=== PATIENT | female | born 1980 | race Caucasian/White ===

== ENCOUNTER 2017-10-01 15:14 | Emergency (ER) | payer MEDICAID, SELFPAY ==
[2017-10-01 15:15] VITALS: BP 108/68; PULSE 91; RESP 16; TEMP 36.6; O2SAT 98; BMI 29.0
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
[2017-10-01] MEDS: Acetaminophen 500 MG Tablet 1000 MG PO (15:45)
[2017-10-01 16:33] LABS: Bacteria 0 SEEN /hpf (None Seen); Mucous, Urine 0 SEEN /hpf (<or=2+); Red Blood Cells-Urine 0 SEEN /hpf (0-5); White Blood Cells 0 SEEN /hpf (0-5)
[2017-10-01 16:46] LABS: Color, Urine Yellow (Yellow); Glucose, Dipstick Normal (Normal); Ketone-Dipstick 5 mg/dl (Negative); Leukocyte Esterase-Dipstick Negative /ul (Negative); Nitrite-Dipstick Negative (Negative); Occult Blood-Urine Negative /ul (Negative); Protein-Dipstick Negative (Negative); Specific Gravity, Urine 1.015 (1.002-1.030); Urine Bilirubin Dipstick Negative (Negative); Urine Clarity Clear (Clear); Urine Urobilinogen Normal (Normal); Urine pH 6.5 (5.0 - 8.0)
[2017-10-01 16:56] LABS: Squamous Epithelial Cells - UA 0-5 SEEN /hpf (5-10)
[2017-10-01 17:12] VITALS: BP 114/72; PULSE 79; RESP 16; O2SAT 100
== END 2017-10-01 17:13 | disposition home or self-care (01) ==
LOC: ED 17:03
PROVIDERS: Emergency Provider Emergency Medicine; PCP Family Medicine
DX: O9A.211 Injury, poisoning and certain other consequences of external causes complicating pregnancy, first trimester (principal); R10.9 Unspecified abdominal pain; Z3A.08 8 weeks gestation of pregnancy; V43.52XA Car driver injured in collision with other type car in traffic accident, initial encounter; Y93.9 Activity, unspecified; Y92.410 Unspecified street and highway as the place of occurrence of the external cause; Y99.9 Unspecified external cause status
CPT/HCPCS: 81001; 99284

== ENCOUNTER 2018-02-09 15:54 | Emergency (ER) | payer MEDICAID, SELFPAY ==
[2018-02-09] VITALS (9 sets, daily range): BP systolic 101–126; BP diastolic 53–69; PULSE 94–127; RESP 15–24; TEMP 36.5–36.9; O2SAT 94–98; BMI 31.1
--- NOTE | 2018-02-09 17:06 | CT_ITS ---
STUDY: CTA CHEST REASON FOR EXAM: Female, 37 years old. Shortness of breath, patient is 6 months RADIATION DOSAGE (If Supplied By Facility): CTDIvol = ( 10.96 ) mGy, DLP = ( 436.99 ) mGycm TECHNIQUE: The examination was performed with the intravenous administration of 100 ml of Isovue 370 contrast material. Post-processing of the angiographic images was performed, with multiplanar reformation and 3D reconstruction. Individualized dose optimization techniques were used for this CT. COMPARISON: None. FINDINGS: There is limited enhancement of the main pulmonary artery and right and left pulmonary arteries. There is limited enhancement of the bilateral peripheral pulmonary arteries. There is no demonstrated pulmonary embolism. Normal thoracic aorta and visualized great vessels. There is no demonstrated aortic dissection. Normal heart and pericardium. Normal mediastinum. Normal hilar regions. Normal visualized trachea and bronchi. The lungs are well expanded. Subtle small airways inflammation noted in both lung bases Normal pleura. Normal chest wall structures. Normal osseous structures. Normal visualized upper abdomen. CT/CTA Chest W/WO Contrast IMPRESSION: No demonstrated PE, or thoracic aortic aneurysm. However, contrast bolus within the pulmonary arteries is not optimal Evidence of bilateral small airways inflammation both lung bases Electronically Signed: Clyde Solis MD at 18:39 EST , Service support ,
--- NOTE | 2018-02-09 17:06 | EKG12_ITS ---
Test Reason : Blood Pressure : / mmHG Vent. Rate : 091 BPM Atrial Rate : 091 BPM P-R Int : 130 ms QRS Dur : 090 ms QT Int : 344 ms P-R-T Axes : 064 065 065 degrees QTc Int : 423 ms Normal sinus rhythm Normal ECG Confirmed by GENESIS LOREDO, BRITANY ([id number]), assistant film editor SUSANA BLACKWELL ([id number]) on 02/11/2018 2:33:31 PM Referred By: Confirmed By:BRITANY HURTADO MD
--- NOTE | 2018-02-09 17:13 | ED.DCSUM_ITS ---
- ER Visit Summary Date of Service: 02/09/18 Chief Complaint: Shortness of breath, cough History of Present Illness: The patient is a 37 F presenting with shortness of breath, cough. She states that this started 2-3 weeks ago. She has a productive cough. She states last week she had a fever but no fever today. She was seen by her NURSE REVIEWER who advised her to come to the ED for further evaluation. She is currently 6 months . She denies abdominal pain or vaginal bleeding. She is . She has occasional chest pain with coughing and with deep inspiration. Physical Examination: Vitals are stable. Patient is afebrile. Alert no acute distress. Pulse ox 96% on room air HEENT exam is unremarkable. Neck is supple. Lungs are mild expiratory wheezing bilaterally. Heart is regular and tachycardic Abdomen is soft nontender nondistended. Gravid Extremities are unremarkable. Skin is warm and dry. No focal neurologic deficit. Remainder of exam is unremarkable. Emergency Department Course and Treatment: EKG is sinus rhythm rate of 91 with no acute ischemic changes. CTA chest shows no demonstrated PE, or thoracic aortic aneurysm. However, contrast bolus within the pulmonary arteries is not optimal. Evidence of bilateral small airways inflammation both lung bases. CBC, chemistries unremarkable other than glucose 73. Patient is tolerating diet in the emergency department. Troponin is negative. Influenza negative. heart tones 160. She is given albuterol Atrovent aerosols with improvement. Her pulse ox is 96% on room air. Discussed with Tonya Calero. She is given albuterol MDI, Tessalon Perles, Zithromax. She is advised to follow-up with her NURSE REVIEWER and her primary care physician. Advised return to ED if worsening complaints. Disposition: Discharge home Impression: Bronchitis This note was generated with [facility] dictation software. It may contain incorrect words, spelling, and punctuation that were not noted in review of the chart prior to signing ED Disposition - Plan for ED Patient: Chief Complaint: Shortness of Breath Instructions: Acute Bronchitis Prescriptions: Azithromycin [Zithromax Z-Randal] 250 mg PO UD #1 box Benzonatate [Tessalon Perle] 200 mg PO TID PRN PRN #20 capsule PRN Reason: Cough Referrals: Jossy Koch MD [STAFF PHYSICIAN] - Red Sauceda MD [Primary Care Provider] -
[2018-02-09] MEDS: Ipratropium/Albuterol Sulfate 3 ML AMPUL.NEB INHALATION (17:36)
[2018-02-09] MEDS: Albuterol 2.5 MG/3 ML VIAL.NEB. INHALATION ×2 (17:36)
[2018-02-09 18:02] LABS: Anion Gap 9 (5-15); BUN 7 mg/dL (7-18); BUN/Creat Ratio 12.4 RATIO (10-20); Calcium,Total 8.5 mg/dL (8.5-10.1); Chloride 106 mmol/L (98-107); Creatinine, Serum 0.57 mg/dL (0.55-1.02); EST Glomerular Filtration Rate 129 mL/min (>60); Est Glom Filt Rate - Afr Amer 156 mL/min (>60); Estimated Creatinine Clearance 138.96 ml/min; Glucose 73 mg/dL (74-106); Potassium 3.8 mmol/L (3.5-5.1); Sodium Level 137 mmol/L (136-145)
[2018-02-09 18:55] LABS: Absolute Neutrophil Count 10.4 X10^3/uL (2.0-7.7); Basophil% 0.1 % (0-1); Eosinophils% 0.5 % (0-5); Hematocrit 32.9 % (37-47); Lymphocyte # 1.48 X10^3/ul (4.0); Lymphocyte % 11.6 % (19-41); Mean Corp Hgb Conc 33.4 g/gl (32-36); Mean Corpuscular Hgb 33.8 pg (27.0-32.0); Mean Corpuscular Volume 101.2 fL (81-99); Mean Platelet Vol. 9.4 fl (6.2-12.0); Monocyte% 6.2 % (0-10); Neutrophil # 10.42 X10^3/uL (2.7-7.7); Neutrophil % 81.4 % (47-70); POSITIVE COUNT NO; POSITIVE DIFFERENTIAL NO; POSITIVE MORPHOLOGY NO; Platelet Count 251 K/mm3 (150-450); RBC Distribution Width CV 13.2 % (11.6-14.6); RBC Distribution Width SD 46.7 fl (35.1-43.9); Red Blood Count 3.25 M/mm3 (4.2-5.4); White Blood Count 12.8 K/mm3 (4.4-11.0)
[2018-02-09 18:56] LABS: Absolute Lymphocyte Count 1.48 X10^3/ul (0.83-4.51); Basophil# 0.01 X10^3/uL; Eosinophil# 0.07 X10^3/uL
--- NOTE | 2018-02-09 19:14 | ED.DEP ---
ED Disposition - Plan for ED Patient: Chief Complaint: Shortness of Breath Instructions: Acute Bronchitis Prescriptions: Azithromycin [Zithromax Z-Randal] 250 mg PO UD #1 box Benzonatate [Tessalon Perle] 200 mg PO TID PRN PRN #20 capsule PRN Reason: Cough Referrals: Red Sauceda MD [Primary Care Provider] - Jossy Koch MD [STAFF PHYSICIAN] -
[2018-02-09] MEDS: Acetaminophen 500 MG Tablet 1000 MG PO (19:47)
--- NOTE | 2018-02-09 19:52 | ED.RN ---
Called lab at 1944 to ask about flu results. product technology scientist stated she was in the process of running swabs and it would be another 15min.
== END 2018-02-09 20:40 | disposition home or self-care (01) ==
LOC: ED 17:11
PROVIDERS: Emergency Provider Emergency Medicine; Family Provider Family Medicine; PCP Family Medicine
DX: J40 Bronchitis, not specified as acute or chronic (principal); Z72.0 Tobacco use
CPT/HCPCS: 71275; 80048; 84484; 85025; 87804; 93005; 94640; 99284; Q9967; A4216

== ENCOUNTER 2018-05-09 19:33 | Inpatient (IN) | payer MEDICAID, SELFPAY ==
[2018-02-09 15:55] VITALS: BMI 31.1
[2018-05-09 19:38] VITALS: BMI 34.2
[2018-05-09] MEDS: Lactated Ringers 1,000 ML 50 ML IV ×2 (19:42→20:58)
[2018-05-09 20:23] LABS: Absolute Neutrophil Count 9.8 X10^3/uL (2.0-7.7); Basophil# 0.01 X10^3/uL; Basophil% 0.1 % (0-1); Eosinophil# 0.13 X10^3/uL; Hemoglobin 11.7 g/dl (12.0-15.0); Lymphocyte % 15.6 % (19-41); Mean Corp Hgb Conc 33.4 g/gl (32-36); Mean Corpuscular Hgb 32.8 pg (27.0-32.0); Mean Platelet Vol. 10.1 fl (6.2-12.0); Monocyte# 0.79 X10^3/uL; Monocyte% 6.2 % (0-10); Neutrophil # 9.84 X10^3/uL (2.7-7.7); Neutrophil % 76.9 % (47-70); POSITIVE COUNT NO; POSITIVE DIFFERENTIAL NO; POSITIVE MORPHOLOGY NO; Platelet Count 237 K/mm3 (150-450); RBC Distribution Width CV 13.8 % (11.6-14.6); RBC Distribution Width SD 49.5 fl (35.1-43.9); Red Blood Count 3.57 M/mm3 (4.2-5.4); White Blood Count 12.8 K/mm3 (4.4-11.0)
--- NOTE | 2018-05-09 21:10 | PCM.HP.OB ---
- Problem List (1) PROM (premature rupture of membranes) Status: Acute Qualifiers: PROM onset of labor timing: onset of labor within 24 hours of rupture PROM gestational age: full term Qualified Code(s): O42.02 - Full-term premature rupture of membranes, onset of labor within 24 hours of rupture (2) Active labor at term Status: Acute (3) Tobacco use affecting in third trimester, antepartum Status: Chronic History Date of Admission: 05/09/18 Final MONIQUE: 05/10/18 Final MONIQUE Source: US <20 weeks Gestational age: 39 Weeks and 6 Days History of this : This is a 37 year-old, G [], P [], at 39 weeks gestational age. Allergies oxycodone HCl [From Percocet] Allergy (Verified 02/09/18 15:57) Angioedema acetaminophen [From Vicodin] Adverse Reaction (Verified 05/09/18 20:08) Vomiting hydrocodone [From Vicodin] Adverse Reaction (Verified 05/09/18 20:08) Vomiting Home Medications: Home Medications Vits [Prenatabs FA] 1 tablet PO DAILY 10/01/17 Ferrous Sulfate 325 mg PO 05/09/18 Smoking Status: Current every day smoker - smokes 1ppd Alcohol: None Number of Fetus(es): 1 Heart Tracing: Baseline 150, minimal variability, few accels, no decels TOCO Analysis: Ctx q 2-4 minutes, palpate moderately strong History Past Pregnancies: Past Pregnancies Delivery Date Name GA/Weeks Outcome Route Weight Gender Labor Length Anesthesia Delivery Location Provider FOB 12/2005 39+2wks Live 7#15oz M 8 hours Epidural 05/2009 38 wks Live 7#8oz M 8 hours Epidural 01/2011 Term Live 6#15oz F Epidural [facility] Labs: A+, Abs Neg, Rubella Immune, HIV NR, Syphilis NR, HepBsAg Neg, CBC WNL, [id number] Neg screen result, Urine tox negative, Urine Culture Negative, GC/CT = Neg/Neg, 1 hour GCT = 135, 3 hour GTT all values in normal range, GBS Neg Pap = LGSIL/+HPV Expected Delivery Method: Spontaneous Vaginal Describe any other labor & delivery plans:: Patient desires epidural Number of Visits: 11 Review of Systems Constitutional: Denies: Chills, Fever, Weight Change HEENT: Denies: Head Aches, Sinus Congestion, Sinus Drainage Cardiovascular: Denies: Chest Pain, Palpitations Respiratory: Denies: Cough, Shortness of breath at rest, Sputum production Gastrointestinal: Denies: Abdominal Pain, Nausea, Vomiting Genitourinary: Denies: Dysuria Gynecological: Reports: Vaginal discharge - +clear watery discharge c/w amniotic fluid. Denies: Vaginal bleeding Musculoskeletal: Denies: Joint Pain, Joint Tenderness Skin: Denies: Rash, Wounds Neurological: Denies: Numbness, Tingling, Focal weakness Psychiatric: Denies: Anxiety, Depression, Homicidal Ideations, Suicidal Ideations Hematologic/ Lymphatic: Denies: Easy Bruising, Easy Bleeding Physical Exam Vitals: VSS, Afebrile - see nursing note General: Alert, Oriented x3, No apparent distress HEENT: Atraumatic, Normocephalic. Negative for: Thyromegaly, Lymphadenopathy Cardiovascular: Regular rate, Regular Rhythm Lungs: Normal air movement Abdomen: Soft, Non Tender, Gravid, Appropriate for Gestational Age Extremities:: No edema Neurological: Deep Tendon Reflexes 2+/4 and Symmetrical, Neuro grossly intact TAG MAKER: Normal external genitalia. Negative for: Vulvar lesions Estimated gestational size: Appropriate for gestational size - EFW = 7.5# Presentation: Cephalic Cervix Dilation (cm): 3 - LArge gush clear fluid per nursing staff during exam Station: -2 Effacement (%): 70 Assessment/Plan All Active Problems PROM (premature rupture of membranes) (Acute) Active labor at term (Acute) Adverse reaction to caffeine (Acute) This is a 37 year-old, G [4], P [3], at 39 weeks gestational age, +SROM, Active Labor, Category I-II FHT P: 1) Admit patient for labor - start IV fluid bolus and draw admission labs as patient requests epidural for labor 2) Dr. Potts OB back-up notified of admission 3) Anticipate Apolonia Rawls FIELD HAULER-CNM
[2018-05-09] MEDS: fentaNYL-bupivacaine (epidural) 100 ML BAG EPIDURAL (21:25)
--- NOTE | 2018-05-09 21:30 | HP.PCM_ITS ---
- Problem List (1) PROM (premature rupture of membranes) Status: Acute Qualifiers: PROM onset of labor timing: onset of labor within 24 hours of rupture PROM gestational age: full term Qualified Code(s): O42.02 - Full-term premature rupture of membranes, onset of labor within 24 hours of rupture (2) Active labor at term Status: Acute (3) Tobacco use affecting in third trimester, antepartum Status: Chronic History Date of Admission: 05/09/18 Final MONIQUE: 05/10/18 Final MONIQUE Source: US <20 weeks Gestational age: 39 Weeks and 6 Days History of this : This is a 37 year-old, G [], P [], at 39 weeks gestational age. Allergies oxycodone HCl [From Percocet] Allergy (Verified 02/09/18 15:57) Angioedema acetaminophen [From Vicodin] Adverse Reaction (Verified 05/09/18 20:08) Vomiting hydrocodone [From Vicodin] Adverse Reaction (Verified 05/09/18 20:08) Vomiting Home Medications: Home Medications Vits [Prenatabs FA] 1 tablet PO DAILY 10/01/17 Ferrous Sulfate 325 mg PO 05/09/18 Smoking Status: Current every day smoker - smokes 1ppd Alcohol: None Number of Fetus(es): 1 Heart Tracing: Baseline 150, minimal variability, few accels, no decels TOCO Analysis: Ctx q 2-4 minutes, palpate moderately strong History Past Pregnancies: Past Pregnancies Delivery Date Name GA/Weeks Outcome Route Weight Gender Labor Length Anesthesia Delivery Location Provider FOB 12/2005 39+2wks Live 7#15oz M 8 hours Epidural 05/2009 38 wks Live 7#8oz M 8 hours Epidural 01/2011 Term Live 6#15oz F Epidural [facility] Labs: A+, Abs Neg, Rubella Immune, HIV NR, Syphilis NR, HepBsAg Neg, CBC WNL, [id number] Neg screen result, Urine tox negative, Urine Culture Negative, GC/CT = Neg/Neg, 1 hour GCT = 135, 3 hour GTT all values in normal range, GBS Neg Pap = LGSIL/+HPV Expected Delivery Method: Spontaneous Vaginal Describe any other labor & delivery plans:: Patient desires epidural Number of Visits: 11 Review of Systems Constitutional: Denies: Chills, Fever, Weight Change HEENT: Denies: Head Aches, Sinus Congestion, Sinus Drainage Cardiovascular: Denies: Chest Pain, Palpitations Respiratory: Denies: Cough, Shortness of breath at rest, Sputum production Gastrointestinal: Denies: Abdominal Pain, Nausea, Vomiting Genitourinary: Denies: Dysuria Gynecological: Reports: Vaginal discharge - +clear watery discharge c/w amniotic fluid. Denies: Vaginal bleeding Musculoskeletal: Denies: Joint Pain, Joint Tenderness Skin: Denies: Rash, Wounds Neurological: Denies: Numbness, Tingling, Focal weakness Psychiatric: Denies: Anxiety, Depression, Homicidal Ideations, Suicidal Ideations Hematologic/ Lymphatic: Denies: Easy Bruising, Easy Bleeding Physical Exam Vitals: VSS, Afebrile - see nursing note General: Alert, Oriented x3, No apparent distress HEENT: Atraumatic, Normocephalic. Negative for: Thyromegaly, Lymphadenopathy Cardiovascular: Regular rate, Regular Rhythm Lungs: Normal air movement Abdomen: Soft, Non Tender, Gravid, Appropriate for Gestational Age Extremities:: No edema Neurological: Deep Tendon Reflexes 2+/4 and Symmetrical, Neuro grossly intact SCHOOL JANITOR: Normal external genitalia. Negative for: Vulvar lesions Estimated gestational size: Appropriate for gestational size - EFW = 7.5# Presentation: Cephalic Cervix Dilation (cm): 3 - LArge gush clear fluid per nursing staff during exam Station: -2 Effacement (%): 70 Assessment/Plan All Active Problems PROM (premature rupture of membranes) (Acute) Active labor at term (Acute) Adverse reaction to caffeine (Acute) This is a 37 year-old, G [4], P [3], at 39 weeks gestational age, +SROM, Active Labor, Category I-II FHT P: 1) Admit patient for labor - start IV fluid bolus and draw admission labs as patient requests epidural for labor 2) Dr. Potts OB back-up notified of admission 3) Anticipate Apolonia Rawls POCKET SETTER LOCKSTITCH-CNM
[2018-05-09] MEDS: Ondansetron 4 MG/2 ML Vial IV (21:39)
[2018-05-09] MEDS: 0.9% Saline Lock 10 ML Syringe IV (21:41)
--- NOTE | 2018-05-09 22:08 | PCM.PN.BLA ---
Progress Note Addendum: S-Patient has received epidural, getting minimal relief at this time. Consideration for epidural replacement being considered by anesthesia provider. Decision made to check patient's cervix to assess for dilation. O- Baseline FHT 150, minimal to moderate variability. No accels, no decels. Patient contraction q 2-4 minutes, moderately strong on palpation. SVE = 4/70/-2, posterior, moderately firm. Clear fluid noted on glove. A/P: 37 y/o @ 39+6wks, Active Labor 1) Anesthesia will replace epidural at this time. 2) Continue present management Apolonia DÍAZ
--- NOTE | 2018-05-09 22:13 | PN_ITS ---
Progress Note Addendum: S-Patient has received epidural, getting minimal relief at this time. Consideration for epidural replacement being considered by anesthesia provider. Decision made to check patient's cervix to assess for dilation. O- Baseline FHT 150, minimal to moderate variability. No accels, no decels. Patient contraction q 2-4 minutes, moderately strong on palpation. SVE = 4/70/- 2, posterior, moderately firm. Clear fluid noted on glove. A/P: 37 y/o @ 39+6wks, Active Labor 1) Anesthesia will replace epidural at this time. 2) Continue present management Apolonia DÍAZ
[2018-05-10] MEDS: Lactated Ringers 1,000 ML 50 ML IV (02:11)
[2018-05-10] MEDS: Acetaminophen 325 MG Tablet PO (02:24)
--- NOTE | 2018-05-10 03:05 | PCM.PN.OB ---
Patient Problems: Active and Suspected Problems PROM (premature rupture of membranes) (Acute) Active labor at term (Acute) Subjective: Patient is now more comfortable with replaced epidural - resting well during contractions. Patient denies any pelvic pain or rectal pressure at this time. Nursing recently called with update of patient's status - internal monitors (IUPC and FSE) placed over concerns of continued decrease in variability of heart rate. Nursing staff recently rechecked patient - . Objective: FHT baseline 155, minimal variability, early decels and occasional mild variables with contractions Ctx q 2-3 minutes, palpate mild to strong SVE = as reported by RN, - Physical Exam General: Alert, Oriented x3, Cooperative Lungs: Normal air movement Cardiovascular: Regular rate, Regular Rhythm Abdomen: Soft, Non Tender, Gravid Extremities: No edema, No Calf Tenderness Weight: 212 lb 4 oz Body Mass Index (BMI) 34.2 Laboratory Tests Past 24 Hrs 05/09/18 05/09/18 19:42 19:42 WBC 12.8 H RBC 3.57 L Hgb 11.7 L Hct 35.0 L MCV 98.0 MCH 32.8 H MCHC 33.4 RDW 13.8 RDW Differential 49.5 H Plt Count 237 MPV 10.1 Immature Gran % (Auto) 0.200 Neut % (Auto) 76.9 H Lymph % (Auto) 15.[address] [place] % (Auto) 6.2 Eos % (Auto) 1.0 Baso % (Auto) 0.1 Absolute Neuts (auto) 9.8 H Absolute Lymphs (auto) 2.00 Total Counted Not Reportable Blood Type A POSITIVE Antibody Screen NEGATIVE Medical Necessity - Tobacco Use Smoking Status: Current every day smoker - smokes 1ppd Assessment/Plan All Active Problems PROM (premature rupture of membranes) (Acute) Active labor at term (Acute) Adverse reaction to caffeine (Acute) 37 y/o @ 40 weeks, Transition Stage of Labor, Category II FHT P: 1) Encourage position changes, PO hydration 2) Anticipate 3) Dr. Potts updated on patient status and category II FHT Apolonia Rawls APRN-IMELDA
--- NOTE | 2018-05-10 04:11 | PLAC_PTH ---
PATIENT: CAMMY GUNN LOC: WP U#:[id number] AGE/SX: 37/F ROOM: WP009 RE05/09/[address]: Dr. Megan Laura, MDDOB: 1980 BED: 1 DIS: 05/12/2018 SPEC #: [id number] RECD: 05/10/18 09:30 STATUS: HUBERT HAMIDA #: [id number] NISHI: 05/10/18 04:[address]: Megan Laura DEPT: SURGICAL PATHOLOGY RECD BY: Rogelio Robertson ENTERED: 05/10/18 10:47 SP TYPE: PLACENTA OTHR DR: Dr. Red Sauceda MD Tissues: Placenta, NOS Procedures: Surgery Specimen Level V HEADER OPERATION: Vaginal delivery PRE-OP DIAGNOSIS: Rule out placental infection TISSUE SUBMITTED: Placenta MICROSCOPIC DIAGNOSIS Placenta, vaginal delivery: [place] term placenta, 519 gm (10-99th percentile). Acute chorioamnionitis with focal acute vasculitis involving subamniotic blood vessels. Acute funisitis involving maternal and ends of umbilical cord. Villous maturation consistent with gestational age. Mild intervillous fibrin deposition with calcification. CE:jade 05/12/18 MICROSCOPIC DESCRIPTION Slides are reviewed. GROSS DESCRIPTION SPECIMEN: PLACENTA / CLINICAL INFORMATION: A. Weight: 3.844 kg B. Gestational Age: 40 weeks C. Sex: Female PLACENTAL WEIGHT (POST FIXATION): 519 gm PLACENTAL DIMENSIONS: 18 x 17 x 3 cm PLACENTAL SHAPE: Usual ovoid PLACENTAL WEIGHT FOR GESTATIONAL AGE: Within 10-99th percentile MEMBRANES - Present A. Insertion: Marginal B. Site of rupture from edge: At edge of placental disc C. Color of membrane: Saucedo-brunson D. Abnormalities: None UMBILICAL CORD - Present A. Color: Saucedo-brunson B. Insertion: Central C. Length: 25 cm D. Diameter: 1 cm E. Number of vessels: Three F. Abnormalities: None PLACENTAL DISC - Present A. Color of surface: Saucedo-brunson B. surface abnormalities: None C. Maternal cotyledons: Intact with minimal tears D. Attached retro placental clot: No clot E. Cut surface: Dark red and spongy F. Lesions: None G. Separate clot: Absent SECTIONS SUBMITTED: 1. Membrane roll 2. Cord, maternal end 3. Cord, end 4. Placental disc, and maternal surfaces 5. Placental disc, and maternal surfaces 6. Placental disc, and maternal surfaces SJ:jade 05/11/18 TC:2 CPT: 94266
[2018-05-10] MEDS: Oxytocin 30 units/NS 500 ml 30 UNITS/500 ML IV.SOLN 334 UNITS IV (04:16)
--- NOTE | 2018-05-10 04:39 | OP.PCM_ITS ---
- Problem List (1) PROM (premature rupture of membranes) Status: Resolved Qualifiers: PROM onset of labor timing: onset of labor within 24 hours of rupture PROM gestational age: full term Qualified Code(s): O42.02 - Full-term premature rupture of membranes, onset of labor within 24 hours of rupture (2) Active labor at term Status: Resolved (3) Tobacco use affecting in third trimester, antepartum Status: Resolved Vaginal Delivery Maternal Presentation: Active Labor Amniotic Membrane Rupture Type: Spontaneous at home Rupture of Membrane time: 05/09/18 @ 1800 Amniotic Fluid Description: Clear Final MONIQUE: 05/10/18 Final MONIUQE Source: US <20 weeks Gestational age: 40 Weeks and 0 Days [place] doctor who attended delivery (if requested by OB): Maryann Carrion Date of Procedure: 05/10/18 Pre-Operative Diagnosis: PROM at term, Active Labor Post-Operative Diagnosis: Spontaneous Delivery of Viable Girl Baby Surgery/ Procedure Performed: Spontaneous Vaginal Delivery Anesthesiologist: Neri Crum Type of Anesthesia: Epidural Description of Procedure: Category II tracing with minimal variability and baseline 160-170 noted. No maternal fever detected. Patient not warm to touch nor was vaginal vault hot. After epidural redosed patient started to feel increased rectal pressure and urge to push. Patient found to be C/C/+1 to +2 with ctx. Patient then spontaneously started bearing down and in one push delivered viable girl baby over intact perineum. Infant head delivered OA, restituted to RON then LOT. Anterior shoulders then easily delivered followed by body. Infant pink and vigorous with weak cry. Thick clear mucus secretions noted - mouth and nose of bulb suctioned and placed on maternal chest where baby was dried and stimulated. Strong vaginal odor and odorous secretions on baby noted at delivery. Continued weak cry noted after 1 minute, umbilical cord clamped and cut by provider so that infant could be handed off to awaiting pediatric team for evaluation and DeLee suctioning of secretions. Apgars 7,8 and 9. weight pending. Placenta then delivered spontaneously with maternal pushing effort and was intact with 3VC. Placenta hot to touch and also with strong odor. Placenta sent to pathology for evaluation. FF to massage, midline 2FB below umbilicus. IV pitocin given per protocol for active management of the 3rd stage. EBL = 250cc. Upon inspection of vaginal vault, no lacerations noted. No repair indicated. Sponge count correct. Vaginal sweep negative. [id number]-[id number] and bonding initiated. Patient does plan to breastfeed baby colostrum. consultation ordered. Presentation: Vertex, RON Placental Delivery Description: Spontaneous Placenta Disposition: Sent to Pathology Cord Vessel Description: 3 Vessels Cord Entanglement: None Estimated Blood Loss: 250 A gender: Female (1 minute): 7 (5 minute): 8 Episiotomy Description: None Laceration: None Medications given after delivery: IV Pitocin Complications: None
[2018-05-10] MEDS: Oxytocin 30 units/NS 500 ml 30 UNITS/500 ML IV.SOLN 167 UNITS IV (04:46)
[2018-05-10 08:00] VITALS: BP 119/67; PULSE 93; RESP 14; TEMP 36.2; O2SAT 96
[2018-05-10] MEDS: Ibuprofen 600 MG Tablet PO ×2 (10:13→16:21)
[2018-05-10 12:00] VITALS: BP 123/76; RESP 14; TEMP 36.1
[2018-05-10] MEDS: Acetaminophen 500 MG Tablet 1000 MG PO ×2 (12:03→20:24)
[2018-05-10 15:42] VITALS: BP 107/52; PULSE 90; RESP 16; TEMP 36.4
[2018-05-10 16:10] VITALS: BP 114/55; PULSE 78; RESP 18; TEMP 36.6
--- NOTE | 2018-05-10 16:10 | ED.RN ---
importance of frequency of feedings discussed with pt. pt encouraged to wake baby up to feed if she is still sleeping after going 3-4 hours without eating
--- NOTE | 2018-05-10 19:10 | NURSING ---
pt provided heating pad to help alleviate abd cramps
[2018-05-10 20:15] VITALS: BP 129/81; PULSE 80; RESP 18; TEMP 36
[2018-05-10] MEDS: Ondansetron ODT 4 MG Tablet PO (20:25)
[2018-05-11 00:05] VITALS: BP 101/53; PULSE 78; RESP 18; TEMP 36.6
[2018-05-11 04:15] VITALS: BP 136/70; PULSE 88; RESP 16; TEMP 36.6
[2018-05-11 07:19] VITALS: BP 112/67; PULSE 80; RESP 16; TEMP 36.1; O2SAT 98
[2018-05-11] MEDS: Ibuprofen 600 MG Tablet PO ×2 (07:25→15:17)
--- NOTE | 2018-05-11 08:50 | PCM.PN.OB ---
Subjective: Doing well per patient and nursing staff. Ambulating and taking PO without difficulty. Voiding and passing flatus. Breast and bottle feeding. Denies increased bleeding today, had large clots size of golf ball yesterday. Planning D/C home tomorrow. - Physical Exam General: Alert, Oriented x3, Cooperative HEENT: Atraumatic, Normocephalic Neck: Trachea Midline Lungs: Clear to auscultation, Normal air movement, No rhonchi, No wheeze Cardiovascular: Regular rate, Regular Rhythm, No murmurs Abdomen: Bowel Sounds Present, Soft, - - Fundus firm 2 below U Extremities: No edema, - - Blanca's negative Psych/Mental Status: Normal Affect, Appropriate Vital Signs Temp Pulse Resp BP Pulse Ox 97.0 F L 80 16 112/67 98 05/11/18 07:19 05/11/18 07:19 05/11/18 07:19 05/11/18 07:19 05/11/18 07:19 Oxygen Delivery Method Room Air Weight: 212 lb 4 oz Body Mass Index (BMI) 34.2 Intake and Output for Last 24 Hours 05/09/18 05/10/18 05/11/18 23:59 23:59 23:59 Intake Total 1865 / 1865 Output Total 200 / 200 Balance 1665 / 1665 Medical Necessity - Tobacco Use Smoking Status: Current every day smoker - smokes 1ppd Assessment/Plan All Active Problems PROM (premature rupture of membranes) (Resolved) Active labor at term (Resolved) Tobacco use affecting in third trimester, antepartum (Resolved) Adverse reaction to caffeine (Acute) A:PPD #1 Breast and bottle feeding P: 1) Routine care 2) Pain management 3) Planning D/C home tomorrow.
[2018-05-11] MEDS: Acetaminophen 500 MG Tablet 1000 MG PO (12:50)
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
[2018-05-11 14:00] VITALS: BP 117/84; PULSE 87; RESP 16; TEMP 36.7; O2SAT 99
[2018-05-11 15:18] LABS: Hematocrit 31.8 % (37-47); Hemoglobin 10.4 g/dl (12.0-15.0); Mean Corp Hgb Conc 32.7 g/gl (32-36); Mean Corpuscular Hgb 32.8 pg (27.0-32.0); Mean Corpuscular Volume 100.3 fL (81-99); Mean Platelet Vol. 10.4 fl (6.2-12.0); Platelet Count 212 K/mm3 (150-450); RBC Distribution Width CV 13.8 % (11.6-14.6); RBC Distribution Width SD 48.7 fl (35.1-43.9); Red Blood Count 3.17 M/mm3 (4.2-5.4)
[2018-05-11 15:19] LABS: Scan Indicated on CBC? Y/N NO
[2018-05-11 16:22] LABS: ALB/GLOB Ratio 0.7 RATIO (0.9-2.4); AST(SGOT) 57 U/L (15-37); Alanine Aminotransfer ALT/SGPT 51 U/L (13-56); Albumin, Serum 2.3 g/dL (3.2-5.0); Alkaline Phosphatase 124 U/L (45-117); Anion Gap 3 (5-15); BUN 8 mg/dL (7-18); Calcium,Total 7.8 mg/dL (8.5-10.1); Chloride 108 mmol/L (98-107); Creatinine, Serum 0.66 mg/dL (0.55-1.02); EST Glomerular Filtration Rate 107 mL/min (>60); Est Glom Filt Rate - Afr Amer 129 mL/min (>60); Estimated Creatinine Clearance 111.37 ml/min; Globulin 3.3 g/dL (2.2-4.2); Glucose 93 mg/dL (74-106); Potassium 4.6 mmol/L (3.5-5.1); Protein, Total 5.6 g/dL (6.4-8.2); Sodium Level 137 mmol/L (136-145)
[2018-05-11 18:20] LABS: Amphetamine Urine VISTA NEGATIVE (<1000 ng/mL); Barbiturate Urine VISTA NEGATIVE (< 200 ng/mL); Benzodiazepine Urine VISTA NEGATIVE (< 200 ng/mL); Cocaine Urine VISTA NEGATIVE (< 300 ng/mL); Ecstacy Urine VISTA NEGATIVE (< 500 ng/mL); Methadone Urine VISTA NEGATIVE (< 300 ng/mL); PCP Urine VISTA NEGATIVE (< 25 ng/mL); THC Urine VISTA NEGATIVE (< 50 ng/mL); Vista UDS pH Range 6
[2018-05-11 20:40] VITALS: BP 133/79; PULSE 91; RESP 18; TEMP 36.1
[2018-05-12 01:30] VITALS: BP 116/67; PULSE 76; RESP 18; TEMP 36.3
[2018-05-12] MEDS: Ibuprofen 600 MG Tablet PO (07:49)
[2018-05-12 08:00] VITALS: BP 135/86; PULSE 80; RESP 18; TEMP 36.6; O2SAT 96
--- NOTE | 2018-05-12 09:32 | NURSING ---
Pt declined fundal assessment at 08:00 Agreed to letting RN palpate after pain med takes effect. Pt hoding baby in lap, feeding with bottle. Burping reinstructed. Discharge instructions initiated.
--- NOTE | 2018-05-12 10:04 | DCINST_ITS ---
Discharge Diet: No Restrictions Discharge Activity: Return to Normal Activity, May not drive while taking narcotic pain medications., May Shower May resume sexual activity in: 4-6 weeks Additional Activity Instructions:: Nothing in the vagina for 4-6 weeks. You may return to work/school in 6 weeks. Call your doctor if your incision/area has: Continuous Slow Oozing, Sudden Increased Bleeding, Increased Pain/ Swelling, Increased Redness, Foul Smelling Discharge Call your doctor if you observe: Fever of 101 or Higher, Inability to urinate, Inability to have a bowel movement, Using more than one pad per hour Additional Instructions: If you experience any of the following, contact your healthcare provider. * Bleeding that soaks a pad every hour for 2 hours * Fever 100.4 or higher * Unrelieved incision or abdominal pain * Swelling, redness, discharge or bleeding from your incision or episiotomy site * Your incision begins to separate * Problems urinating (including inability to urinate or burning while urinating). * Visual changes * Severe headache * Flu-like symptoms * Pain or redness in one of both of your breasts * Pain, warmth, tenderness or swelling in your legs, especially the calf area * Frequent nausea and vomiting * Symptoms of depression or anxiety If you experience any of the following, call 911 or go to the nearest Emergency Room. * Chest pain * Problems breathing * Seizure activity * Partial or complete paralysis of a body part, slurred speech, weakness or drooping of the face, or a sudden inability to walk or hold your balance Allergies/Adverse Reactions: Allergies oxycodone HCl [From Percocet] Allergy (Verified 02/09/18 15:57) Angioedema acetaminophen [From Vicodin] Adverse Reaction (Verified 05/09/18 20:08) Vomiting hydrocodone [From Vicodin] Adverse Reaction (Verified 05/09/18 20:08) Vomiting Medications to take at Discharge Vits [Prenatabs FA] 1 tablet PO DAILY 10/01/17 Ferrous Sulfate 325 mg PO 05/09/18 Please Follow Up With: Apolonia Rawls CNM When: Call to make an appointment with your provider in 2 and 6 weeks. Primary Care Physician: Red Sauceda MD [Primary Care Provider] - Test Results: Test results from this visit will be discussed in further detail at your follow- up appointment, if applicable. Proposed Discharge Date: 05/12/18
--- NOTE | 2018-05-12 10:12 | PN.OBGYN_ITS ---
Subjective: Patient sitting up in bed bonding with infant at this time. Patient reports no issues currently, denies any issues with urination or ambulation. Denies GALVAN, scotoma or fever. Patient desires discharge to home today. Objective: VSS, Afebrile - see nurse's note Nipples without cracks or blisters, breasts soft Abdomen NT x 4 quadrants, FF midline 2FB below umbilicus +2/4 reflexes in LE, no edema scant rubra lochia negative calf tenderness to palpation BL in LE - Physical Exam General: Alert, Oriented x3, Cooperative HEENT: Atraumatic, Normocephalic Lungs: Normal air movement Cardiovascular: Regular rate, Regular Rhythm, No murmurs Abdomen: Soft, Non Tender Extremities: No edema, Capillary Refill Less than 3 Seconds Skin: No rashes, No breakdown Musculoskeletal: No Tenderness to Palpation of Joints or Extremities Neurological: Cranial nerves II-XII grossly intact, Deep Tendon Reflexes 2+/4 and Symmetrical Psych/Mental Status: Normal Affect, Appropriate Vital Signs Temp Pulse Resp BP Pulse Ox 97.9 F 80 18 135/86 H 96 05/12/18 08:00 05/12/18 08:00 05/12/18 08:00 05/12/18 08:00 05/12/18 08:00 Oxygen Delivery Method Room Air Weight: 212 lb 4 oz Body Mass Index (BMI) 34.2 Intake and Output for Last 24 Hours 05/10/18 05/11/18 05/12/18 23:59 23:59 23:59 Intake Total 1865 / 1865 Output Total 200 / 200 Balance 1665 / 1665 Laboratory Tests Past 24 Hrs 05/11/18 05/11/18 05/11/18 15:05 15:05 17:55 WBC 12.0 H RBC 3.17 L Hgb 10.4 L Hct 31.8 L MCV 100.3 H MCH 32.8 H MCHC 32.7 RDW 13.8 RDW Differential 48.7 H Plt Count 212 MPV 10.4 Sodium 137 Potassium 4.6 Chloride 108 H Carbon Dioxide 26.0 Anion Gap 3 L BUN 8 Creatinine 0.66 Estim Creat Clear Calc 111.37 Est GFR (MDRD) Af Amer 129 Est GFR (MDRD) Non-Af 107 BUN/Creatinine Ratio 12.0 Glucose 93 Calcium 7.8 L Total Bilirubin 0.30 AST 57 H ALT 51 Alkaline Phosphatase 124 H Total Protein 5.6 L Albumin 2.3 L Globulin 3.3 Albumin/Globulin Ratio 0.7 L Urine Opiates Screen NEGATIVE Urine Methadone Screen NEGATIVE Ur Barbiturates Screen NEGATIVE Ur Phencyclidine Scrn NEGATIVE Ur Amphetamines Screen NEGATIVE U Methamphetamin-MDMA NEGATIVE U Benzodiazepines Scrn NEGATIVE Urine Cocaine Screen NEGATIVE U Cannabinoids Screen NEGATIVE Ur Drug Screen Comment Medical Necessity - Tobacco Use Smoking Status: Current every day smoker - smokes 1ppd Assessment/Plan All Active Problems PROM (premature rupture of membranes) (Resolved) Active labor at term (Resolved) Tobacco use affecting in third trimester, antepartum (Resolved) Adverse reaction to caffeine (Acute) 37y/ now, s/p , PPD #2, Normal PP Course P: 1) Discharge to home pending discharge 2) Anticipatory health teaching reviewed 3) RTC at 2 and 6 weeks PP to [facility] Apolonia DÍAZ
[2018-05-12 14:34] LABS: Pathology Specimen OB SEE PATHOLOGY REPORT
--- NOTE | 2018-05-17 17:31 | NURSING ---
05/17/18 Follow up phone call made and left a message to call back if any further questions or concerns. Mauricio
== END 2018-05-12 10:20 | disposition home or self-care (01) | DRG 560 ==
LOC: WPOUT 19:37 → WP 19:37
PROVIDERS: Advanced Practice Midwife; Admitting Provider Obstetrics & Gynecology; Family Provider Family Medicine; PCP Family Medicine; Referring Provider Obstetrics & Gynecology; Visit Provider Obstetrics & Gynecology
DX: O42.02 Full-term premature rupture of membranes, onset of labor within 24 hours of rupture (principal); O99.334 Smoking (tobacco) complicating childbirth; Z3A.40 40 weeks gestation of pregnancy; Z37.0 Single live birth
CPT/HCPCS: 59025; 59050; 80053; 80307; 85025; 85027; 86850; 86900; 88307; 99218; J7120; A4216; G0378; J2405

== ENCOUNTER 2023-01-29 15:22 | Emergency (ER) | payer OTHER, BC, SELFPAY ==
[2023-01-29 15:22] VITALS: BP 172/86; PULSE 84; RESP 16; TEMP 36.4; O2SAT 98; BMI 28.1
--- NOTE | 2023-01-29 16:19 | EDS_ITS ---
HPI History of Present Illness Chief Complaint: Eye Problem Informant: patient Onset/Context/Timing Location: Left Eye Onset: Yesterday Narrative Narrative: Patient presents with left eye injury. She states that she was at work yesterday and splashed a chemical into her eye. She is not sure what it was. She irrigated her eye at the time and kept working. This morning she woke up with some crusting and discharge from her left eye. She had some mild eyelid edema. She called work and told them that she would not be in. She went to urgent care but was advised she had to come to the ER for eye irrigation. Denies vision change. Mild aching sensation to the left eye. No light sensitivity. PFSH PFSH Medical History no medical history no medical history Home Medications vits,calcium no.78-iron fumarate-folic acid 29 mg-1 mg tablet (Prenatabs FA) 1 tab PO DAILY 10/01/17 [History Last Taken 05/08/18 09:00] ibuprofen 600 mg tablet 600 mg PO Q6H PRN PRN Mild Pain (-04/17) 05/12/18 [Rx Last Taken Unknown] Allergy/AdvReac Type Severity Reaction Status Date / Time oxycodone HCl [From Percocet] Allergy Angioedema Verified 02/09/18 15:57 acetaminophen [From Vicodin] AdvReac Vomiting Verified 05/09/18 20:08 hydrocodone [From Vicodin] AdvReac Vomiting Verified 05/09/18 20:08 Social History Smoking Status: Current every day smoker tobacco type: cigarettes ROS ROS ED Constitutional Constitutional ED: Denies chills or fever(s) Eyes Eyes: Reports discharge from eye(s); Denies change in vision ENT ENT ED: Reports discharge from eye(s) left; Denies rhinorrhea or sore throat Cardiovascular Cardiovascular: Denies chest pain Respiratory/Chest Respiratory/Chest: Denies cough or dyspnea Gastrointestinal Gastrointestinal: Denies abdominal pain, nausea or vomiting Integumentary Denies Abrasions or rash Neurologic Neurologic: Denies headache(s) or weakness Psychiatric Psychiatric: Denies anxiety or depression Allergic/Immunologic Allergic/Immunologic ED: Denies lip swelling or urticaria EXAM Physical Exam Const Vital Signs: 01/29/23 15:22 Temperature 97.6 F L Temperature Source Temporal Pulse Rate 84 Respiratory Rate 16 Blood Pressure 172/86 H Blood Pressure Mean 114 Pulse Ox 98 Oxygen Delivery Method Room Air Positive well nourished and well developed General Appearance ED: well developed HEENT HEENT Narrative: Mild left upper eyelid edema. No significant erythema or sign of cellulitis. No significant conjunctival injection. Pupils equal and reactive. Extraocular movements fully intact. Resp normal respiratory effort Cardio regular rate and regular rhythm Extremity normal to inspection Neuro oriented x3 and moves all extremities Skin no wounds MDM MDM MDM Narrative Medical decision making narrative: Tetracaine applied to the left eye and eyewash to lightly irrigate the eye. Treatment and Re-Evaluation Narrative: After I was irrigated by nursing staff I presented to the bedside. Another drop of tetracaine is applied and fluorescein stain placed. No evidence of uptake, ulceration, abrasion. I did discuss with patient that she has evidence of a chemical conjunctivitis. I will treat her with gentamicin ophthalmic drops to help prevent any secondary bacterial infection. She will follow-up with [facility] care. Discharge Plan Triage Chief Complaint: Eye Problem ED Provider: Rachel Adan Dx/Rx/DC Orders Clinical Impression: Acute chemical conjunctivitis of left eye Instructions: ED Conjunctivitis, Nonspecific Prescriptions: No Action vit,[id number] [Prenatabs FA] 1 TABLET tablet 1 tab PO DAILY ibuprofen 600 MG tablet 600 mg PO Q6H PRN PRN (Reason: Mild Pain (1-310)) 0RF Stand Alone Forms: Work Status Form Primary Care Provider: Red Sauceda Referrals: [facility] [Group of Physicians] - 3-5 Days Red Sauceda MD [Primary Care Provider] - Activity Restrictions/Additional Instructions: Gentamicin ophthalmic drops: 2 drops to affected eye every 6 hours until symptoms resolved for 24 hours. Disposition Disposition: Home, Self Care
[2023-01-29] MEDS: Fluorescein 1 MG STRIP 1 STRIP LEFT EYE (16:33)
[2023-01-29] MEDS: Tetracaine 0.5% Ophthalmic Bottle 1 DRP LEFT EYE (16:34)
[2023-01-29] MEDS: Gentamicin Sulfate 1 OPTH.BTL 2 DRP LEFT EYE (17:05)
[2023-01-29] MEDS: Sodium/Calcium/Mag/Potassium 15 ML Bottle LEFT EYE (17:05)
== END 2023-01-29 17:12 | disposition home or self-care (01) ==
PROVIDERS: Emergency Provider Emergency Medicine; PCP Family Medicine; Visit Provider Emergency Medicine
DX: H10.32 Unspecified acute conjunctivitis, left eye (principal); F17.210 Nicotine dependence, cigarettes, uncomplicated; H57.12 Ocular pain, left eye
CPT/HCPCS: 99283

== ENCOUNTER 2023-04-23 03:30 | Emergency (ER) | payer OTHER, SELFPAY ==
[2023-04-23 03:32] VITALS: BP 136/78; PULSE 90; RESP 16; TEMP 36.7; O2SAT 98; BMI 29.1
--- OUTSIDE RECORDS SUMMARY | 2023-04-23 03:59 | XMS RPT_ITS | CCD ---
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 Name Role Phone Sopankaj, Telemate Unavailable Unavailable Estefani Telemate Unavailable Unavailable Red Gonzalez Unavailable Unavailable Red Gonzalez MD Primary Care Provider Allergies Allergy Classification Reported Allergen(s) Allergy Type Date of Onset Reaction(s) Facility (1 source) acetaminophen / oxyCODONE; Translations: [Percocet ] Drug Allergy [facility] Repository (1 source) Acetaminophen / oxyCODONE Drug Allergy 5 Swelling [facility] (1 source) HYDROcodone Drug Allergy 8 Other: See Comments [facility] (1 source) Bees Propensity to adverse reactions 8 [facility] Work Phone: Medications Completed/Discontinued Medications Medication Drug Class(es) Dates Sig (Normalized) Sig (Original) [id number] actuat albuterol 0.09 mg/actuat metered dose inhaler (1 source) beta2-Adrenergic Agonist Start: 01-09-2019 take 2 puff(s) by inhalation every three hours albuterol HFA (VENTOLIN HFA) 90 mcg/actuation inhaler Inhale 2 Puffs as instructed every 3 hours. 0 01/09/2019 Active Problems Active Problems Problem Classification Problem Date Documented Da te Episodic/Chronic Anxiety disorders (1 source) Mixed anxiety and depressive disorder; Translations: [Other specified anxiety disorders] Onset: 02-09-2012 01-13-2019 Chronic Mood disorders (1 source) Recurrent major depression in partial remission; Translations: [Major depressive disorder, recurrent, in partial remission] Onset: 01-10-2016 01-10-2016 Chronic Other screening for suspected conditions (not mental disorders or infectious disease) (1 source) Patient encounter status; Translations: [Encounter for screening mammogram for malignant neoplasm of breast] 08-12-2022 Episodic Thyroid disorders (1 source) Non-toxic multinodular goiter; Translations: [Nontoxic multinodular goiter] Onset: 09-30-2007 09-30-2007 Chronic Past or Other Problems Problem Classification Problem Date Documented Date Episodic/Chronic Cancer of cervix (1 source) High grade squamous intraepithelial lesion on cervical Papanicolaou smear; Translations: [High grade squamous intraepithelial lesion on cytologic smear of cervix (HGSIL)] Onset: 07-11-2018 08-15-2018 Episodic Spondylosis; intervertebral disc disorders; other back problems (1 source) Chronic low back pain; Translations: [Chronic midline low back pain without sciatica] Onset: 01-30-2016 01-30-2016 Episodic Results Test Name Value Interpretation Reference Range Facil ity Encounters Encounter Date Encounter Type Care Provider Facility Start: 08-12-2022 ambulatory Red Gonzalez MD Work Phone: Internal Medicine [facility] Start: 08-13-2017 End: 08-13-2017 Emergency department patient visit [facility] Facility:[facility] Plan of Treatment Date Care Activity Detail Author Start: 04-04-2028 Urine microalbumin profile DTAP,TDAP,TD (2 - Td or Tdap) [facility] Start: 2023 HPV TESTING HPV TESTING [facility] Start: 2023 PAP TESTING PAP TESTING [facility] Start: 10-09-2022 Influenza vaccination INFLUENZA (#1) [facility] Start: 2022 Mammography MAMMOGRAM [facility] Start: 1988 PNEUMOCOCCAL (1 - PCV) PNEUMOCOCCAL (1 - PCV) [facility] Start: 1982 COVID-19 VACCINE (#1) COVID-19 VACCINE (#1) [facility] Start: 1982 HEPATITIS B (1 of 3 - 3-dose series) HEPATITIS B (1 of 3 - 3-dose series) [facility] End: 09-11-2023 JACKIE SCREENING JACKIE SCREENING Radiology Routine Encounter for screening mammogram for breast cancer 1 Occurrences starting 08/12/2022 until 09/11/2023 [facility] Work Phone: Immunizations Immunization Date Immunization Notes Care Provider Fa anabelfadia 04-04-2018 tetanus toxoid, redu ricardo diphtheria toxoid, and acellular pertussis vaccine, adsorbed Red Gonzalez MD Work Phone: [facility] Work Phone: 12-15-2010 influenza virus vaccine, unspecified formulation Red Gonzalez MD Work Phone: [facility] Payers Date Payer Category Payer Medicaid [facility] [place] [facility] MEDICAID [id number] 2022-Present [phone] [address] [place] [address] Medicaid [id number] 2017 Unknown Social History Date Type Detail Facility Start: 09-15-2017 [facility] History of tobacco use Cigarette Smoker [facility] Start: 09-15-2017 Cigarettes smoked cu rrent (pack per day) - Reported 0.5 [facility] Start: 09-15-2017 Tobacco use and exposure Smoke less tobacco non-user [facility] Start: 01-10-2020 Alcohol intake Current drinke r of alcohol (finding) [facility] Start: 07-08-2010 Alcohol Comment Occasional,NOT WHILE [facility] Start: 1980 Sex Assigned At Not on file [facility] Gender identity Not on file [facility] inic Clinical Note 08-12-2022 Note Date & Type Note Facility 08-12-2022 Note Patient Outreach (IN [facility]) CAMMY GUNN ([id number]) 1980 F Date Time Provider Department 08/12/22 RED GONZALEZ During your visit today, we recorded the following information about you: Allergies As of Date: 08/12/2022 Noted Allergy Reaction BEES 09/30/2007 HYDROCODONE 06/25/2017 14 - Other: See Comments Comments: Dry heaving PERCOCET (OXYCODONE-ACETAMINOPHEN)02/04/2015 7 - Swelling Date Reviewed: 01/10/2020 Reviewed by: Amanda Stone (Handy) HANDY Berger - Fully Assessed Visit Diagnosis:Encounter for screening mammogram for breast cancer [Z12.31] Order(s):[facility] SCREENING [[id number]] Order #: [id number] FUTURE Prescriptions as of 08/17/2022 - venlafaxine ER (EFFEXOR XR) 75 mg 24 hr capsule TAKE 1 CAPSULE BY MOUTH EVERY DAY - albuterol HFA (VENTOLIN HFA) 90 mcg/actuation inhaler Inhale 2 Puffs as instructed every 3 hours. - varenicline (CHANTIX STARTING MONTH BOX) 0.5 mg (11)- 1 mg (42) tablet Take 1 tablet (0.5 mg) by mouth once daily for 3 days, then 1 tablet (0.5 mg) twice daily for 4 days, then one tablet (1 mg) twice daily. - nicotine (NICODERM) 21 mg/24 hr Apply 1 Patch as directed every 24 hours. - levonorgestrel (MIRENA) 20 mcg/24 hours (5 yrs) 52 mg IUD 1 Each by INTRAUTERINE route continuous. - oxybutynin (DITROPAN) 5 mg tablet Take 1 tablet by mouth three times daily. Problem List As Of Date 08/12/2022 Noted Resolved NONTOX MULTINODUL GOITER [E04.2] 09/30/2007 Supervision of other normal [Z34.80] 01/22/2011 03/18/2011 Recurrent major depression in partial remission*01/10/2016 Chronic midline low back pain without sciatica *01/30/2016 Low grade squamous intraepithelial lesion (LGSI*09/27/2017 07/11/2018 Supervision of other high risk pregnancies, fir*09/27/2017 06/28/2018 Elderly multigravida in first trimester [O09.52*09/27/2017 06/28/2018 HSIL (high grade squamous intraepithelial lesio*07/11/2018 Anxiety associated with depression [F41.8] 2012 Encounter Status:Closed by PAOLA DELACRUZUSER on 08/17/22 [facility] History of Past illness Narrative 09-27-2017 Note Date & Type Note Facility documented as of this encounter (statuses as of 08/17/2022) [facility] Evaluation note Note Date & Type Note Facility documented in this encounter [facility] Reason for referral (narrative) Diagnostic Procedure Only (Routine) - Pending Review Note Date & Type Note Facility Referral ID Status Reason Start Date Expiration Date Visits Requested Visits Authorized [id number] Pending Review Auto-Generat ed Referral 08/12/2022 09/11/2023 1 1 [facility] Summary Purpose Family History No Family History Records FoundNo Family History Records FoundNo Family History Records Found Advance Directives No Advanced Directives Records FoundNo Advanced Directives Records FoundNo Advanced Directives Records Found Additional Source Comments INFORMATION SOURCE (unrecogn ized section and content) DATE CREATED AUTHOR AUTHOR'S ORGANIZ ATION 03/12/2020 [facility] ([place]) DATE CREATED AUTHOR AUTHOR'S ORGANIZ ATION 08/17/2022 [facility] Source Comments (unrecognize d section and content) In the event this informatio n is protected by the Federal Confidentiality of Alcohol and Drug Abuse Patient Records regulations: The Federal rules restrict any use of the information to criminally investigate or prosecute any alcohol or drug abuse patient.[facility] Care Teams (unrecognized sec tion and content) FOR RECORDS PERTAINING TO PATIENTS WHO ARE OR HAVE BEEN ENROLLED IN A CHEMICAL DEPENDENCY/SUBSTANCEABUSE PROGRAM, SOME INFORMATION MAY BE OMITTED. This clinical summary was aggregated from multiple sources. Caution should be exercised in using it in the provision of clinical care. This summary normalizes information from multiple sources, and as a consequence, information in this document may materially change the coding, format and clinical context of patient data. In addition, data may be omitted in some cases. CLINICAL DECISIONS SHOULD BE BASED ON THE PRIMARY CLINICAL RECORDS. [facility] [employer] [facility]. provides no warranty or guarantee of the accuracy or completeness of information in this document.
[2023-04-23] MEDS: Fluorescein 1 MG STRIP 1 STRIP LEFT EYE (04:08)
[2023-04-23] MEDS: Tetracaine 0.5% Ophthalmic Bottle 1 DRP RIGHT EYE (04:08)
--- NOTE | 2023-04-23 04:32 | EDS_ITS ---
HPI History of Present Illness Chief Complaint: Eye Problem Informant: patient and other (Work staff) Narrative Narrative: Patient is a 42-year-old female with no significant past medical history. She was at work this evening when a cleaning solution of sodium hydrochloride accidentally splashed into her right eye. She states she does not wear contacts or glasses. She reports that as soon as the event happened she went to the eyewash station and began washing her eye. She states that she has redness and irritation but denies any change in vision. However based on the chemical exposure she was brought in for evaluation. PFSH PFS Medical History no medical history Home Medications vits,calcium no.78-iron fumarate-folic acid 29 mg-1 mg tablet (Prenatabs FA) 1 tab PO DAILY 10/01/17 [History Last Taken 05/08/18 09:00] ibuprofen 600 mg tablet 600 mg PO Q6H PRN PRN Mild Pain (1-3/10) 05/12/18 [Rx Last Taken Unknown] ciprofloxacin HCl 0.3 % eye drops 2 drp RIGHT EYE 4X/DAY 5 days #10 mL 04/23/23 [Rx Last Taken Unknown] Allergy/AdvReac Type Severity Reaction Status Date / Time oxycodone HCl [From Percocet] Allergy Angioedema Verified 02/09/18 15:57 acetaminophen [From Vicodin] AdvReac Vomiting Verified 05/09/18 20:08 hydrocodone [From Vicodin] AdvReac Vomiting Verified 05/09/18 20:08 Social History Smoking Status: Current every day smoker tobacco type: cigarettes ROS ROS ED Constitutional Constitutional ED: Denies chills or fever(s) Eyes Eyes: Reports other Details: Positive right eye redness and irritation ; Denies change in vision or diplopia ENT ENT ED: Denies sore throat Cardiovascular Cardiovascular: Denies chest pain Respiratory/Chest Respiratory/Chest: Denies cough or dyspnea Gastrointestinal Gastrointestinal: Denies abdominal pain, diarrhea, nausea or vomiting Genitourinary Genitourinary ED: Denies dysuria Musculoskeletal Musculoskeletal: Denies myalgias Integumentary Denies rash Neurologic Neurologic: Denies headache(s) Hematologic/Lymphatic Hematologic/Lymphatic: Denies easy bleeding or easy bruising EXAM Physical Exam Const Vital Signs: 04/23/23 03:32 Temperature 98.1 F Temperature Source Oral Pulse Rate 90 Respiratory Rate 16 Blood Pressure 136/78 H Blood Pressure Mean 97 Pulse Ox 98 Positive well nourished and well developed General Appearance ED: well developed HEENT HEENT Narrative: Normocephalic atraumatic Eyes PERRL and EOMs intact bilaterally Eyes Narrative: Pupils are equal reactive to light and accommodation bilaterally. Extraocular muscles are intact Right eye has scleral injection and mild increased tearing. Upper lid was everted no foreign body. Staining with fluorescein and Hui lamp exam reveals a small abrasion/ulcer around the 6 to 7 o'clock position that extends from the iris into the pupil. Negative Chanel sign. pH testing of both the left and right eye shows that the pH is 7-8 bilaterally. Neck supple Resp normal respiratory effort and clear to auscultation bilaterally Cardio regular rate and regular rhythm Extremity normal to inspection Neuro oriented x3, CN's II-XII intact bilaterally, moves all extremities and no sensory deficits noted Sensorium / Orientation: alert Motor Exam: strength 5/5 throughout Psych mental status grossly normal Skin no rashes or lesions noted and no wounds MDM MDM MDM Narrative Medical decision making narrative: Patient presented to the ER after exposure to sodium hydrochloride into the right eye. She reported that she flushed her eyes at work and denies contact lens use. As sodium hydrochloride is a basic chemical and can cause liquefaction necrosis. Exam did not show any signs of globe rupture or retained foreign body. It did note that there is a small ulcer or abrasion consistent with a chemical burn. However as the pH is now neutral bilaterally risks that injury is still occurring is extremely low and therefore patient is otherwise safe for discharge and can follow-up with ophthalmology on an outpatient basis. History & Record Review Discussion w/independent historian: Patient Discharge Plan Triage Chief Complaint: Eye Problem ED Provider: Moses Mccarty Dx/Rx/DC Orders Clinical Impression: Alkaline chemical burn of right eye Instructions: Corneal Injury, ED Eye Exposure, Chemical Prescriptions: New ciprofloxacin HCl 0.3 % drops 2 drp RIGHT EYE 4X/DAY 5 Days Qty: 10 0RF Rx Instructions: administer while awake No Action vit,[id number] [Prenatabs FA] 1 TABLET tablet 1 tab PO DAILY ibuprofen 600 MG tablet 600 mg PO Q6H PRN PRN (Reason: Mild Pain (1-3/10)) 0RF Primary Care Provider: Red Sauceda Referrals: Miranda Daniel MD [Med Staff - Active Staff] - Red Sauceda MD [Primary Care Provider] - Activity Restrictions/Additional Instructions: You sustained a chemical burn to your right. This will create eye redness and irritation and the sensation of a foreign object in the eye for a few days. Use the prescribed eyedrops as directed to prevent infection and follow-up with ophthalmology for repeat evaluation. Return to the ER should you have any furt her concerns Disposition Disposition: Home, Self Care Discharge Date/Time: 04/23/23 05:03
[2023-04-23 05:02] VITALS: BP 132/60; PULSE 85; RESP 16; TEMP 36.3; O2SAT 96
== END 2023-04-23 05:03 | disposition home or self-care (01) ==
PROVIDERS: Emergency Provider Emergency Medicine; PCP Family Medicine; Visit Provider Emergency Medicine
DX: T26.41XA Burn of right eye and adnexa, part unspecified, initial encounter (principal); F17.210 Nicotine dependence, cigarettes, uncomplicated; Z77.098 Contact with and (suspected) exposure to other hazardous, chiefly nonmedicinal, chemicals; T31.0 Burns involving less than 10% of body surface; Y93.89 Activity, other specified; Y99.0 Civilian activity done for income or pay; Y92.89 Other specified places as the place of occurrence of the external cause
CPT/HCPCS: 99283; A4216

== ENCOUNTER 2023-06-14 17:14 | Emergency (ER) | payer BC, SELFPAY ==
[2023-06-14] VITALS (9 sets, daily range): BP systolic 129–159; BP diastolic 61–88; PULSE 84–105; RESP 16–20; TEMP 36.2–36.7; O2SAT 9–99; BMI 28.1
--- NOTE | 2023-06-14 18:00 | EDS_ITS ---
HPI History of Present Illness Chief Complaint: Shortness of Breath PFSH PFSH Medical History no medical history Home Medications albuterol sulfate 90 mcg/actuation aerosol inhaler (Ventolin HFA) 2 puff inhalation Q4H PRN PRN Wheezing #8.5 grams 06/14/23 [Rx Last Taken Unknown] prednisone 50 mg tablet 50 mg PO DAILY 5 days #5 tabs 06/14/23 [Rx Last Taken Unknown] Allergy/AdvReac Type Severity Reaction Status Date / Time oxycodone HCl [From Percocet] Allergy Angioedema Verified 06/14/23 17:17 acetaminophen [From Vicodin] AdvReac Vomiting Verified 06/14/23 17:17 hydrocodone [From Vicodin] AdvReac Vomiting Verified 06/14/23 17:17 Surgical History no surgical history Social History Smoking Status: Current every day smoker tobacco type: cigarettes EXAM Physical Exam Const Vital Signs: 06/14/23 17:15 06/14/23 17:17 06/14/23 17:48 Temperature 98.1 F 98.1 F Temperature Source Temporal Temporal Pulse Rate 105 H 105 H Respiratory Rate 17 17 Respiratory Effort Normal Respiratory Depth Normal Respiratory Pattern Normal Blood Pressure 159/87 H 159/87 H Blood Pressure Mean 111 111 Pulse Ox 95 95 Oxygen Delivery Method Room Air Room Air Room Air 06/14/23 18:33 06/14/23 18:55 06/14/23 18:30 Temperature 97.8 F Temperature Source Oral Pulse Rate 89 95 Respiratory Rate 16 20 H Respiratory Effort Respiratory Depth Respiratory Pattern Normal Blood Pressure 130/87 H Blood Pressure Mean 101 Pulse Ox 97 Oxygen Delivery Method Room Air Room Air 06/14/23 19:15 06/14/23 20:09 06/14/23 21:41 Temperature 97.1 F L 98 F Temperature Source Temporal Pulse Rate 92 96 84 Respiratory Rate 18 16 16 Respiratory Effort Respiratory Depth Respiratory Pattern Blood Pressure 129/88 H 134/61 H 137/87 H Blood Pressure Mean 101 85 103 Pulse Ox 94 94 99 Oxygen Delivery Method Room Air Room Air MDM MDM MDM Narrative Medical decision making narrative: HISTORY OF PRESENT ILLNESS: 42 old female presents with shortness of breath, dyspnea on exertion for last couple weeks. Notes progressive dyspnea on exertion. Noted to have a your choice has sinus issues. Denies any lower extremity edema. Denies any bleeding diathesis. Denies any chest pain or palpitations. Denies any recent sick contacts. Does note she has a cold. Notes a dry cough. No she smokes daily. The patient denies recent surgery in the last 4 weeks or immobilization in the last 3 days, denies previous diagnosis of DVT or PE, hemoptysis, unilateral leg swelling or malignancy with treatment the last 6 months or palliative. No estrogen use noted. REVIEW OF SYSTEMS: Pertinent positives: Dyspnea, cough Pertinent negatives: Fever, chest pain, bleeding diathesis, leg swelling PHYSICAL EXAM: Nursing triage notes reviewed, Vital signs reviewed Constitutional: please see mdm HENT: MMM Eyes: Pupils equal round and reactive to light, Extraocular muscles intact Neck: No stridor, no JVD, full neck ROM Lungs: Clear to auscultation, bilateral wheezing. No increased work of breathing, no conversational dyspnea, no accessory muscle use, no nasal flaring. No respiratory distress noted Heart: Regular rate and rhythm, No murmurs, No rubs and No gallops, 2+ distal pulses (radial, femoral, posterior tibial) in all extremities Abdomen: Soft, there is no tenderness, rigidity, rebound or guarding, no obvious peritoneal signs, no palpable pulsatile abdominal masses, no auscultated abdominal bruit : No CVAT Extremities: No edema Neuro: No focal neurological deficits, cranial nerves II through XII intact, 5/5 strength in all extremities. Intact sensation to light touch in all extremities, 2+ reflexes bilateral patella tendons. Normal gait. No ataxia. Skin: No rash or lesions noted MEDICAL DECISION MAKING: Chief Complaint: Dyspnea External records reviewed: Imaging reviewed: CT of the chest from 2019 shows no PE, thoracic arctic aneurysm Factors affecting care: none Social determinants of health: History of tobacco abuse History obtained from others: none Consults: none [facility] Narrative: Patient was initially slightly tachycardic at a rate of 105 otherwise afebrile nontoxic-appearing. Exam with focal lung findings consistent with wheezing and likely COPD exacerbation. I considered the following differential diagnosis: CHF, ACS, arrhythmia, anemia, electrolyte disturbance Pneumonia, COPD or asthma I considered pulmonary embolism as a potential etiology, consider obtaining CT of the chest however thought this was not indicated given low risk Wells score. I obtained a broad lab and imaging workup to further elucidate the etiology patient complaints Given wheezing I gave empiric COPD treatment in form of IV Solu-Medrol and DuoNeb breathing treatments. ALL IMAGES (IF OBTAINED) HAVE BEEN PERSONALLY REVIEWED AND INTERPRETED BY MYSELF. EKG with normal sinus rhythm, normal axis, normal intervals, no STEMI CBC without leukocytosis, severe anemia, no thrombocytopenia. BMP without evidence of significant electrolyte abnormalities, no anion gap, no acute kidney injury. High-sensitivity troponin is negative, no evidence of myocardial ischemia BNP within normal limits suggestive of no increased ventricular stretch or transfer of pressure I have personally reviewed the patient's chest x-ray. Chest x-ray is unremarkable for pulmonary edema, pneumothorax, pneumonia or focal cardiopulmonary abnormality. The Synthesis of the patient's history, physical exam, labs, and images suggest likely COPD exacerbation. She responded well to breathing treatments here in the ED. She ambulated without hypoxia. Kept the patient on steroids at home and gave strict return precautions and follow-up instructions. Arrange PCP follow- up for definitive PFTs The patient and/or family, caregivers express understanding. The patient and/or family, caregivers agrees with the plan. Shared decision making: I will have a discussion with the patient and or visitors regarding risk/benefits of further testing or admission. They will be made aware of of the risk/benefits inherent in this decision they will be given the opportunity to voice understanding. Total critical care time today provided was at least 0 minutes. This excludes separately billable procedures. Critical care time (if documented) is secondary to the patient having high probability of clinically significant/life threatening deterioration in the patient's condition which required my urgent intervention. Impression: 1. Dyspnea 2. COPD exacerbation Dispo: [] This note was generated with Scrip-t dictation software. It may contain incorrect words, spelling, and punctuation that were not noted in review of the chart prior to signing. Lab Data Labs: Laboratory Results - last 24 hr 06/14/23 18:30 WBC 9.5 RBC 4.07 L Hgb 13.3 Hct 39.7 MCV 97.5 MCH 32.7 H MCHC 33.5 RDW Std Deviation 46.7 H RDW Coeff of Abiodun 13.1 Plt Count 171 MPV 10.1 Immature Gran % (Auto) 0.400 Neut % (Auto) 71.4 H Lymph % (Auto) 17.5 L [place] % (Auto) 8.3 Eos % (Auto) 2.0 Baso % (Auto) 0.4 Absolute Neuts (auto) 6.8 Absolute Lymphs (auto) 1.66 Nucleated RBC % 0 Sodium 137 Potassium 3.7 Chloride 106 Carbon Dioxide 26.0 Anion Gap 5 BUN 10 Creatinine 0.88 Estim Creat Clear Calc 93.40 Est GFR (MDRD) Af Amer 91 Est GFR (MDRD) Non-Af 75 BUN/Creatinine Ratio 11.4 Glucose 103 Calcium 8.7 Troponin I High Sens 4 B-Natriuretic Peptide 9.7 Radiography Diagnostic Testing: Clinical Impression(s) from Imaging Studies Chest X-Ray 06/14/23 19:06 IMPRESSION: Normal x-ray examination of the chest. Electronically Signed: Elie Hansen MD at 20:04 EDT , Discharge Plan Triage Chief Complaint: Shortness of Breath ED Provider: Sarwat Rossi Dx/Rx/DC Orders Instructions: ED COPD Flare Prescriptions: New albuterol sulfate [Ventolin HFA] 90 mcg/actuation HFA aerosol inhaler 2 puff inhalation Q4H PRN PRN (Reason: Wheezing) Qty: 8.5 3RF prednisone 50 mg tablet 50 mg PO DAILY 5 Days Qty: 5 0RF Primary Care Provider: Red Sauceda Referrals: Red Sauceda MD [Primary Care Provider] - Activity Restrictions/Additional Instructions: Thank you for trusting us with your care today! You have been given a diagnosis COPD. Please take Tylenol (2 pills, 650 mg), ibuprofen (2 pills, 400 mg) every 6 hours as needed for pain and fever control. Please return to the emergency department if your symptoms change or worsen. Please follow with your primary care physician for further outpatient evaluation and management. Disposition Disposition: Home, Self Care Discharge Date/Time: 06/14/23 21:42
--- NOTE | 2023-06-14 18:01 | EKG12_ITS ---
Test Reason : SOB Blood Pressure : / mmHG Vent. Rate : 089 BPM Atrial Rate : 089 BPM P-R Int : 134 ms QRS Dur : 088 ms QT Int : 362 ms P-R-T Axes : 077 053 059 degrees QTc Int : 440 ms Normal sinus rhythm Normal ECG Confirmed by Laith Payne ([id number]), make up editor BRIA THOMAS ([id number]) on 06/15/2023 10:01:15 AM Referred By: Confirmed By:Laith Payne
[2023-06-14] MEDS: Ipratropium/Albuterol Sulfate 3 ML AMPUL.NEB INHALATION (18:30)
[2023-06-14] MEDS: MethylPREDNISolone 125 MG/2 ML Vial IV (18:32)
[2023-06-14 18:50] LABS: Absolute Lymphocyte Count 1.66 X10^3/uL (0.83-4.51); Absolute Neutrophil Count 6.8 X10^3/uL (2.0-7.7); Basophil# 0.04 X10^3/uL; Basophil% 0.4 % (0-1); Eosinophil# 0.19 X10^3/uL; Hematocrit 39.7 % (37-47); Hemoglobin 13.3 g/dL (12.0-15.0); Lymphocyte # 1.66 X10^3/ul (0.83-4.51); Lymphocyte % 17.5 % (19-41); Mean Corp Hgb Conc 33.5 g/dL (32-36); Mean Corpuscular Hgb 32.7 pg (27.0-32.0); Mean Corpuscular Volume 97.5 fL (81-99); Mean Platelet Vol. 10.1 fl (6.2-12.0); Monocyte# 0.79 X10^3/uL; Monocyte% 8.3 % (0-10); NRBC Flagged by Analyzer 0 % (0-5); Neutrophil # 6.76 X10^3/uL (2.7-7.7); Neutrophil % 71.4 % (47-70); Platelet Count 171 K/mm3 (150-450); RBC Distribution Width CV 13.1 % (11.6-14.6); RBC Distribution Width SD 46.7 fl (35.1-43.9); Red Blood Count 4.07 M/mm3 (4.2-5.4); White Blood Count 9.5 K/mm3 (4.4-11.0)
--- NOTE | 2023-06-14 19:06 | RAD_ITS ---
STUDY: X-RAY CHEST REASON FOR EXAM: Female, 42 years old. SOB TECHNIQUE: PA and lateral views of the chest. COMPARISON: None. FINDINGS: The lungs are clear and expanded. There is no demonstrated pleural abnormality. Normal size heart. Normal mediastinum and robb. Normal visualized pulmonary arteries. Normal visualized aortic arch and descending thoracic aorta. Normal visualized thoracic spine. Normal visualized ribs, clavicles, and shoulders. There is no demonstrated abnormality of the visualized soft tissue structures of the upper abdomen. RAD/Chest PA and Lateral IMPRESSION: Normal x-ray examination of the chest. Electronically Signed: Elie Hansen MD at 20:04 EDT ,
[2023-06-14 19:08] LABS: BNP,B-Type NATRIURETIC PEPTIDE 9.7 pg/mL (0-100)
[2023-06-14 19:10] LABS: Anion Gap 5 (5-15); BUN 10 mg/dL (7-18); BUN/Creat Ratio 11.4 RATIO (10-20); Calcium,Total 8.7 mg/dL (8.5-10.1); Chloride 106 mmol/L (98-107); Creatinine, Serum 0.88 mg/dL (0.55-1.02); EST Glomerular Filtration Rate 75 mL/min (>60); Est Glom Filt Rate - Afr Amer 91 mL/min (>60); Glucose 103 mg/dL (74-106); Potassium 3.7 mmol/L (3.5-5.1); Sodium Level 137 mmol/L (136-145); Troponin-I HS 4 pg/mL (3.0-54.0)
== END 2023-06-14 21:42 | disposition home or self-care (01) ==
PROVIDERS: Emergency Provider Emergency Medicine; PCP Family Medicine; Visit Provider Emergency Medicine
DX: J44.1 Chronic obstructive pulmonary disease with (acute) exacerbation (principal); R06.00 Dyspnea, unspecified; F17.210 Nicotine dependence, cigarettes, uncomplicated
CPT/HCPCS: 71046; 80048; 83880; 84484; 85025; 93005; 94640; 96374; 99284; A4216

== ENCOUNTER 2024-09-21 19:35 | Emergency (ER) | payer SELFPAY ==
[2024-09-21 19:35] VITALS: BP 162/102; PULSE 115; RESP 30; TEMP 36.4; O2SAT 97; BMI 32.2
[2024-09-21 19:44] VITALS: BP 130/87; PULSE 90; RESP 17; TEMP 36.8; O2SAT 100
--- NOTE | 2024-09-21 19:47 | ED.VIS.DYS ---
HPI <SHAHRZAD Taylor - Last Filed: 09/21/24 21:32> History of Present Illness Chief Complaint: Shortness of Breath Narrative Narrative: 44-year-old female states she is always slightly short of breath likely from COPD but over the last 2 days her shortness of breath and cough worsened. Her chest feels tight when taking a deep breath. No fever, chills, exertional chest pain, nausea or vomiting. She smokes about 1/2 PPD since age 18. She was seen in the ER last year for similar symptoms and told she probably has COPD but she does not follow with a doctor. She does not have an inhaler or take any medications. PFSH <SHAHRZAD Taylor - Last Filed: 09/21/24 21:32> [facility] Medical History (Updated 09/21/24 @ 20:17 by SHAHRZAD Taylor) COPD (chronic obstructive pulmonary disease) Home Medications ?Medication ?Instructions ?Recorded ?Last Taken ?Type albuterol sulfate 90 mcg/actuation 2 puff inhalation Q4H PRN PRN 06/14/23 Unknown Rx aerosol inhaler (Ventolin HFA) Wheezing #8.5 grams prednisone 50 mg tablet 50 mg PO DAILY 5 days #5 tabs 06/14/23 Unknown Rx albuterol sulfate 90 mcg/actuation 2 inh inhalation Q4H PRN shortness 09/21/24 Unknown Rx breath activated powder inhaler of breath or wheezing 30 days #1 ea azithromycin 250 mg tablet See Rx Instructions PO .COMPLEX #6 09/21/24 Unknown Rx (Zithromax Z-Randal) tabs prednisone 50 mg tablet 50 mg PO DAILY 5 days #5 tabs 09/21/24 Unknown Rx Allergy/AdvReac Type Severity Reaction Status Date / Time oxycodone HCl (From Percocet) Allergy Angioedema Verified 09/21/24 19:36 acetaminophen (From Vicodin) AdvReac Vomiting Verified 09/21/24 19:36 hydrocodone (From Vicodin) AdvReac Vomiting Verified 09/21/24 19:36 Social History (Updated 09/21/24 @ 20:06 by Mónica Alba) housing: house Smoking Status: Current every day smoker tobacco type: cigarettes ROS <SHAHRZAD Taylor - Last Filed: 09/21/24 21:32> ROS ED ROS Narrative Constitutional: Negative for fever, chills, malaise. CVS: Negative for chest pain, syncope. Respiratory: Positive for shortness of breath, cough. GI: Negative for abdominal pain, nausea, vomiting. EXAM <SHAHRZAD Taylor - Last Filed: 09/21/24 21:32> Physical Exam Narrative Exam Narrative: CONST: Patient sitting in no acute distress. EYES: Normal inspection. NECK: Normal inspection. RESP: Mild conversational dyspnea, prolonged expiration with expiratory wheezing throughout all lung alvarez. CVS: Regular rate and rhythm, no murmur, no gallop. SKIN: Color normal, no rash, warm, dry, intact. EXTREMITIES: Normal appearance, no pedal edema. NEURO: Alert and answering questions appropriately. PSYCH: Normal affect. Const Vital Signs: 09/21/24 19:35 09/21/24 19:44 09/21/24 19:44 Temperature 97.5 F L 98.3 F Temperature Source Oral Oral Pulse Rate 115 H 90 Respiratory Rate 30 H 17 Respiratory Effort Normal Short of Breath Respiratory Depth Normal Respiratory Pattern Normal Blood Pressure 162/102 H 130/87 H Blood Pressure Mean 122 101 Pulse Ox 97 100 Oxygen Delivery Method Room Air 09/21/24 19:54 09/21/24 20:38 09/21/24 20:58 Temperature 98.3 F Temperature Source Pulse Rate 102 H 100 100 Respiratory Rate 18 18 18 Respiratory Effort Respiratory Depth Respiratory Pattern Normal Normal Blood Pressure 130/87 H Blood Pressure Mean 101 Pulse Ox 99 Oxygen Delivery Method <Dr. Thiago Ch DO - Last Filed: 09/22/24 00:19> Physical Exam Const Vital Signs: 09/21/24 19:35 09/21/24 19:44 09/21/24 19:44 Temperature 97.5 F L 98.3 F Temperature Source Oral Oral Pulse Rate 115 H 90 Respiratory Rate 30 H 17 Respiratory Effort Normal Short of Breath Respiratory Depth Normal Respiratory Pattern Normal Blood Pressure 162/102 H 130/87 H Blood Pressure Mean 122 101 Pulse Ox 97 100 Oxygen Delivery Method Room Air 09/21/24 19:54 09/21/24 20:38 09/21/24 20:58 Temperature 98.3 F Temperature Source Pulse Rate 102 H 100 100 Respiratory Rate 18 18 18 Respiratory Effort Respiratory Depth Respiratory Pattern Normal Normal Blood Pressure 130/87 H Blood Pressure Mean 101 Pulse Ox 99 Oxygen Delivery Method MDM <SHAHRZAD Taylor - Last Filed: 09/21/24 21:32> [facility] Narrative Medical decision making narrative: Differential includes but not limited to COPD exacerbation, pneumonia 44-year-old female with long history of tobacco use presents with a few days of increasing dyspnea and productive cough. She had an formal diagnosis of COPD with past respiratory issues. She has conversational dyspnea and diffuse expiratory wheezing throughout all lung alvarez so I ordered a DuoNeb and IV Solu-Medrol. Chest x-ray shows no acute process. EKG is normal sinus rhythm without ischemic changes. She does not have chest pain and her symptoms are consistent with COPD so I do not feel she needs blood work or cardiac enzymes. She was given an additional aerosol treatment and feels much better. Her ambulatory pulse ox is 100% so she is appropriate for outpatient management. I prescribed an albuterol inhaler, prednisone, and Z-Randal since she has an increased productive cough. I recommended follow-up with PCP or to return if symptoms worsen. She was discharged in stable condition. Radiography Diagnostic Testing: Clinical Impression(s) from Imaging Studies Chest X-Ray 09/21/24 20:00 IMPRESSION: NO ACUTE FINDINGS. Reading Location: [facility] ED attending interpretation of two-view chest x-ray shows normal heart size, no acute infiltrate. EKG Initial EKG: Attestation: I personally reviewed and interpreted this EKG as follows: Interpretation: Sinus Rhythm and No Acute Injury Pattern Comments: Normal sinus rhythm at 93 bpm Normal intervals, no acute ischemic changes <Dr. Thiago Ch DO - Last Filed: 09/22/24 00:19> [facility] Radiography Diagnostic Testing: Clinical Impression(s) from Imaging Studies Chest X-Ray 09/21/24 20:00 IMPRESSION: NO ACUTE FINDINGS. Reading Location: [facility] Treatment and Re-Evaluation :: Attending note: I have personally performed a face to face assessment of the patient and have reviewed the SLIM note. I personally made/approved the management plan and take responsibility for the patient management. I performed a substantive portion of the visit including all aspects of the following. My arora findings include: Increasing productive cough with wheezing. Strong tobacco history. Diagnosed COPD last year. No diabetes history. Patient examined after treatment and there is only very slight wheezing symptoms are improving. Two-view chest x-ray interpreted myself and read by radiology shows no acute process. Steroids and aerosol treatments improving symptoms ambulated improved symptoms pulse ox stable. With COPD started on antibiotics continue steroids. Outpatient follow-up. Refill of her inhalers. Discharge Plan Triage Chief Complaint: Shortness of Breath ED Midlevel Provider: Elizabeth Negro ED Provider: Thiago Ch Dx/Rx/DC Orders Clinical Impression: COPD exacerbation, Acute dyspnea, Tobacco use Instructions: ED COPD Flare Prescriptions: New albuterol sulfate 90 mcg/actuation aerosol powdr breath activated 2 inh inhalation Q4H PRN (Reason: shortness of breath or wheezing) 30 Days Qty: 1 0RF prednisone 50 mg tablet 50 mg PO DAILY 5 Days Qty: 5 0RF azithromycin [Zithromax Z-Randal] 250 mg tablet See Rx Instructions .ROUTE .COMPLEX Qty: 6 0RF Rx Instructions: For 250 mg dose pack: take 500 mg today (day 1), then 250 mg for 4 days (days 2-5) No Action albuterol sulfate [Ventolin HFA] 90 mcg/actuation HFA aerosol inhaler 2 puff inhalation Q4H PRN PRN (Reason: Wheezing) Qty: 8.5 3RF prednisone 50 mg tablet 50 mg PO DAILY 5 Days Qty: 5 0RF Primary Care Provider: Red Sauceda Referrals: [facility] [Provider Group] Red Sauceda MD [Primary Care Provider] - Activity Restrictions/Additional Instructions: I think you have COPD from smoking. I refilled her inhaler, prescribed steroids, and an antibiotic. I strongly advise you to establish with a primary care doctor because you will need further care and refills of her inhaler etc. If your breathing worsens come back to the ER. Print Language: Urdu Disposition Disposition: Home, Self Care Discharge Date/Time: 09/21/24 20:59
[2024-09-21 19:54] VITALS: PULSE 102; RESP 18
--- NOTE | 2024-09-21 20:00 | RAD_ITS ---
PROCEDURE: CHEST PA AND LATERAL 09/21/2024 REASON FOR EXAM: COUGH AND DYSPNEA TECHNIQUE: CHEST PA AND LATERAL COMPARISON: 06/14/2023. FINDINGS: The heart is normal in size. The lungs are clear. No acute osseous abnormalities. RAD/Chest PA and Lateral IMPRESSION: NO ACUTE FINDINGS. Reading Location: [id number]
[2024-09-21 20:38] VITALS: PULSE 100; RESP 18
[2024-09-21] MEDS: Albuterol 2.5 MG/3 ML VIAL.NEB. INHALATION (20:38)
--- OUTSIDE RECORDS SUMMARY | 2024-09-21 20:38 | XMS RPT_ITS | CCD ---
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 Status: She is alert and oriented to person, place, and time. ASSESSMENT/PLAN: 1. Acute cough - ICD9: 786.2, ICD10: R05.1 (primary diagnosis) - IP (more content not included)... Normal [facility] Absolute lymphocyte countOrd ered By: Sarwat Rossi on 06-14-2023 Lymphocytes Auto (Unsp spec) [#/Vol] 1.66 10*3/uL 0.83-4.51 [facility] Automated lymphocyte count a s percentage of total leukocytesOrdered By: Sarwat Rossi on 06-14-2023 Lymphocytes/100 WBC Auto (Unsp spec) 17.5 % 19-41 [facility] Basophil percentageOrdered B y: Sarwat Rossi on 06-14-2023 Basophils/100 WBC (Bld) 0.4 % 0-1 [facility] Chloride [Moles/Vol] 106 mmol/L 98-107 [facility] Eosinophils/100 WBC (Bld) 2.0 % 0-5 [facility] Glucose [Mass/Vol] 103 mg/dL 74-106 [facility] Comment on above: Fasting Glucose resu lt from 100 to 125 mg/dL suggests IMPAIRED HOMEOSTASIS per A.D.A. criteria. Hemoglobin (Bld) [Mass/Vol] 13.3 g/dL 12.0-15.0 [facility] Monocytes/100 WBC (Bld) 8.3 % 0-10 [facility] Neutrophils (Bld) [#/Vol] 6.8 10*3/uL 2.0-7.7 [facility] Neutrophils/100 WBC (Bld) 71.4 % 47-70 [facility] Potassium [Moles/Vol] 3.7 mmol/L 3.5-5.1 [facility] Sodium [Moles/Vol] 137 mmol/L 136-145 [facility] WBC (Bld) [#/Vol] 9.5 10*3/uL 4.4-11.0 [facility] Determination of erythrocyte mean corpuscular volume (MCV)Ordered By: Sarwat Rossi on 06-14-2023 MCV (RBC) [Entitic vol] 97.5 fL 81-99 [facility] Erythrocyte distribution wid th ratioOrdered By: Sarwat Rossi on 06-14-2023 Erythrocyte distribution width (RBC) [Ratio] 13.1 % 11.6-14.6 [facility] Erythrocyte distribution wid th standard deviationOrdered By: Sarwat Rossi on 06-14-2023 Erythrocyte distribution width (RBC) [Entitic vol] 46.7 fL 35.1-43.9 [facility] Hematocrit Auto (Bld) [Volum e fraction]Ordered By: Sarwat Rossi on 06-14-2023 Hematocrit (Bld) [Volume fraction] 39.7 % 37-47 [facility] Immature granulocytes/100 WB C Auto (Bld)Ordered By: Sarwat Rossi on 06-14-2023 Immature granulocytes/100 WBC (Bld) 0.400 % 0.0-0.9 [facility] Comment on above: IG% - Immature Granu locytes (promyelocytes, myelocytes and metamyelocytes) > 1% indicates that a LEFT SHIFT is Present. Laboratory - Chemistry and C hemistry - challengeOrdered By: Sarwat Rossi on 06-14-2023 CO2 [Moles/Vol] 26.0 mmol/L 21.0-32.0 [facility] Natriuretic peptide B (Bld) [Mass/Vol] 9.7 pg/mL 0-100 [facility] Urea nitrogen/Creatinine [Mass ratio] 11.4 mg/mg 10-20 [facility] Laboratory - Hematology and Cell countsOrdered By: Sarwat Rossi on 06-14-2023 MCH (RBC) [Entitic mass] 32.7 pg 27.0-32.0 [facility] MCHC (RBC) [Mass/Vol] 33.5 g/dL 32-36 [facility] Nucleated RBC/100 WBC (Bld) [Ratio] 0 % 0-5 [facility] Platelet mean volume (Bld) [Entitic vol] 10.1 fL 6.2-12.0 [facility] Platelets (Bld) [#/Vol] 171 10*3/uL 150-450 [facility] No Panel InformationOrdered By: Sarwat Rossi on 06-14-2023 Estimated Creatinine Clearance Calc 93.40 ml/min [facility] Estimated GFR (MDRD) Amer 91 mL/min >60 [facility] Comment on above: GFR Calc Estimated GFR (MDRD) Non-Af Amer 75 mL/min >60 [facility] Comment on above: Non- GFR Calc Troponin I High Sensitivity 4 pg/mL 3.0-54.0 [facility] Comment on above: Please Note: New Erlinda t Units and Gender Specific Reference Ranges. For more information see Policy Stat Procedure [place] High Sensitivity Troponin (TNIH) and attachments. RBC Auto (Bld) [#/Vol]Ordere d By: Sarwat Rossi on 06-14-2023 RBC (Bld) [#/Vol] 4.07 10*6/uL 4.2-5.4 [facility] Serum or plasma calcium du urement (mass/volume)Ordered By: Sarwat Rossi on 06-14-2023 Calcium [Mass/Vol] 8.7 mg/dL 8.5-10.1 [facility] Serum or plasma creatinine m easurement (mass/volume)Ordered By: Sarwat Rossi on 06-14-2023 Creatinine [Mass/Vol] 0.88 mg/dL 0.55-1.02 [facility] Comment on above: The validity of the calculated GFR & GFRAA in patients over 70 years has not been determined. Clinical correlation is essential. Serum or plasma urea nitroge n measurement (mass/volume)Ordered By: Sarwat Rossi on 06-14-2023 Urea nitrogen [Mass/Vol] 10 mg/dL 7-18 [facility] Thin prep Papanicolaou smear with manual screeningOrdered By: Sarwat Rossi on 06-14-2023 Thin prep Papanicolaou smear with manual screening 5 5-15 [facility] US SOFT TISSUE Bossman 2019 US SOFT TISSUE MASS ORIGINAL US SOFT TISSUE MASS CLINICAL STATEMENT: LUMP IN SKIN. Patient states lump in the RIGHT lower back COMPARISON: None FINDINGS: Scanning of the area of concern with attention to the superficial soft tissues is performed. The musculature and deep soft tissues are not adequately evaluated. There is cutaneous thickening and prominent subcutaneous edema without a discrete mass in the region of concern. No lymphadenopathy or other pathology is identified. IMPRESSION: Subcutaneous edema without discrete fluid collection or mass. I have personally reviewed the images of this examination and agree with the resident's findings and interpretation. Interpreted By: Cameron Avila MD Preliminary Report By: Bang Beltran DO Electronically Signed By: Cameron Avila MD Dictated Date: 01/18/2020 1:35:06 PM Prelim Date: 01/18/2020 1:37:01 PM Sign Date: 01/18/2020 3:33:40 PM Ordering Provider:Yelitza Haque Formerly [facility] ([place]) Auto Diffon 08-13-2017 Basophils Auto #/vol (Bld) 0.0 E3/mcL Normal 0.0-0.2 [facility] Comment on above: Order Comment: Order Added by Discern Expert. Performed By: #### 2 [id number] ####AUBREE [address] [place] [address] Basophils/100 WBC Auto (Bld) 0.4 % Normal 0.0-2.0 [facility] Comment on above: Order Comment: Order Added by Discern Expert. Performed By: #### 2 [id number] ####AUBREE [address] [place] [address] Eos Absolute 0.0 E3/mcL Normal 0.0-0.7 [facility] Comment on above: Order Comment: Order Added by Discern Expert. Performed By: #### 2 [id number] ####AUBREE [address] [place] [address] Eosinophils/100 leukocytes 0.3 % Normal 0.0-11.0 [facility] Comment on above: Order Comment: Order Added by Discern Expert. Performed By: #### 2 [id number] ####AUBREE [address] [place] [address] Lymphocytes 2.0 E3/mcL Normal 1.2-3.4 [facility] Comment on above: Order Comment: Order Added by Discern Expert. Performed By: #### 2 [id number] ####AUBREE [address] [place] [address] Lymphocytes/100 leukocytes 22.8 % Normal 20.0-55.0 [facility] Comment on above: Order Comment: Order Added by Discern Expert. Performed By: #### 2 [id number] ####AUBREE [address] [place] [address] [place] Absolute 0.6 E3/mcL Normal 0.0-0.7 [facility] Comment on above: Order Comment: Order Added by Discern Expert. Performed By: #### 2 [id number] ####AUBREE [address] [place] [address] Monocytes/100 leukocytes 7.3 % Normal 0.0-10.0 [facility] Comment on above: Order Comment: Order Added by Discern Expert. Performed By: #### 2 [id number] ####AUBREE [address] [place] [address] Neutro Absolute 6.0 E3/mcL Normal 1.4-6.5 [facility] Comment on above: Order Comment: Order Added by Discern Expert. Performed By: #### 2 081514 ####AUBREE [address] [place] [address] Neutro Auto 69.2 % Normal 37.0-75.0 [facility] Comment on above: Order Comment: Order Added by Discern Expert. Performed By: #### 2 359264 ####AUBREE [address] [place] [address] BMPon 08-13-2017 BUN/Creatinine Ratio 18.8 ratio Normal 5.4-30.0 [facility] Comment on above: Performed By: #### 2 780712 ####AUBREEKlever [address] [place] [address] Creatinine 0.8 mg/dL Normal 0.6-1.3 [facility] Comment on above: Performed By: #### 2 589337 ####AUBREE [address] [place] [address] Urea nitrogen 15 mg/dL Normal 7-18 [facility] Comment on above: Performed By: #### 2 905115 ####AUBREEKlever [address]UzhMpcw[address] [place] [address] Calcium 9.3 mg/dL Normal 8.4-10.2 [facility] Comment on above: Performed By: #### 2 347193 ####AUBREE [address] [place] [address] Chloride 102 mmol/L Normal 98-107 [facility] Comment on above: Performed By: #### 2 114456 ####AUBREEKlever [address]us[address] [place] [address] CO2 27.7 mmol/L Normal 24.0-30.0 [facility] Comment on above: Performed By: #### 2 946819 ####AUBREE [address] [place] [id number] Glucose mass conc 80 mg/dL Normal 70-99 [facility] Comment on above: Performed By: #### 2 124623 ####AUBREEKlever [address] [place] [address] Potassium molar conc 4.0 mmol/L Normal 3.5-5.1 [facility] Comment on above: Performed By: #### 2 848842 ####AUBREE [address] [place] [address] Sodium 137 mmol/L Normal 136-145 [facility] Comment on above: Performed By: #### 2 027636 ####AUBREE [address] [place] [address] BhCG Qualon 08-13-2017 HCG.beta subunit Qn Negative Normal Negative [facility] Comment on above: Performed By: #### 2 [id number] ####AUBREE Chemistry Manual [address] [place] [address] CBC w/ Auto Diffon 8 Erythrocyte distribution width Auto Ratio (RBC) 13.2 % Normal 11.5-14.5 [facility] Comment on above: Performed By: #### 2 252937 ####AUBREE [address] [place] [address] Erythrocytes (RBC) 4.20 E6/mcL Normal 3.90-5.40 [facility] Comment on above: Performed By: #### 2 340758 ####AUBREE [address] [place] [address] Hematocrit (HCT) 40.8 % Normal 36.0-48.0 [facility] Comment on above: Performed By: #### 2 079932 ####AUBREE [address] [place] [address] Hemoglobin mass conc (Bld) 13.9 g/dL Normal 12.0-16.0 [facility] Comment on above: Performed By: #### 2 585119 ####AUBREE [address] [place] [address] MCH 33.1 pg High 27.0-31.0 [facility] Comment on above: Performed By: #### 2 861721 ####AUBREE [address] [place] [address] MCHC mass conc (RBC) 34.1 g/dL Normal 33.0-37.0 [facility] Comment on above: Performed By: #### 2 309566 ####AUBREE [address] [place] [address] MCV 97.0 fL Normal 78.0-100.0 [facility] Comment on above: Performed By: #### 2 203085 ####AUBREE [address] [place] [address] Platelet mean volume (PMV) 8.9 fL Normal 7.4-11.0 [facility] Comment on above: Performed By: #### 2 567300 ####AUBREE [address] [place] [address] Platelets 216 E3/mcL Normal 130-400 [facility] Comment on above: Performed By: #### 2 777169 ####AUBREE [address]Apt[address] [place] [address] WBC (Leukocytes) 8.7 E3/mcL Normal 3.6-11.0 [facility] Comment on above: Performed By: #### 2 158644 ####AUBREEKlever [address] [place] [address] Hep Func Panelon 08-13-2017 Alanine aminotransferase (ALT) 16 Int._Unit/L Normal 10-40 [facility] Comment on above: Performed By: #### 2 496869 ####AUBREEKlever [address] [place] [address] Albumin 4.0 g/dL Normal 3.2-5.0 [facility] Comment on above: Performed By: #### 2 397420 ####AUBREEKlever [address] [place] [address] Albumin/Globulin Ratio 1.3 {ratio} Normal 1.1-1.9 [facility] Comment on above: Performed By: #### 2 958112 ####AUBREE [address] [place] [address] Alk Phos 61 Int._Unit/L Normal 42-121 [facility] Comment on above: Performed By: #### 2 [id number] ####AUBREEKlever [address] [place] [address] Aspartate aminotransferase (AST) 19 Int._Unit/L Normal 10-42 [facility] Comment on above: Performed By: #### 2 061344 ####AUBREE [address] [place] [address] Bili Direct <.10 Normal .00-.20 [facility] Comment on above: Performed By: #### 2 935852 ####AUBREE [address] [place] [address] Bili Indirect >0.4 Normal [facility] Comment on above: Result Comment: No e stablished ranges available for the Indirect Biliruben. Performed By: #### 2 [id number] ####AUBREE [address] [place] [address] Bili Total 0.5 mg/dL Normal 0.2-1.0 [facility] Comment on above: Performed By: #### 2 548201 ####AUBREE [address] [place] [address] Globulin 3.1 g/dL Normal 2.0-4.0 [facility] Comment on above: Performed By: #### 2 560066 ####AUBREE [address] [place] [address] Protein 7.1 g/dL Normal 6.4-8.3 [facility] Comment on above: Performed By: #### 2 169680 ####AUBREE [address] [place] [address] Lipase Levelon 08-13-2017 Lipase Lvl 24 U/L Normal 8-57 [facility] Comment on above: Performed By: #### 2 071233 ####AUBREE [address] [place] [address] eGFRon 08-13-2017 eGFR (non-black) mL/min/{1.73_m2} Normal [facility] Comment on above: Order Comment: Order added by Discern Expert. Performed By: #### 1 [id number] ####AUBREE [address] [place] [address] Vital Signs Date Time Vital Sign Value Performing Clinician Facility 09-20-2024 16:11-0400 Body mass index (BMI) [Ratio] 31.98 kg/m2 Hansa Ibarra APRN.LEAD TELLER Work Phone: [facility] 09-20-2024 16:11-0400 Body temperature 97.81 [degF] Hansa Ibarra APRN.LEAD TELLER Work Phone: [facility] 09-20-2024 16:11-0400 Body weight 93.5 kg Hansa Ibarra APRN.LEAD TELLER Work Phone: [facility] 09-20-2024 16:11-0400 Diastolic blood pressure 78 mm[Hg] Hansa Ibarra APRN.LEAD TELLER Work Phone: [facility] 09-20-2024 16:11-0400 Heart rate 100 /min Hansa Ibarra APRN.LEAD TELLER Work Phone: [facility] 09-20-2024 16:11-0400 Respiratory rate 20 /min Hansa Ibarra APRN.LEAD TELLER Work Phone: [facility] 09-20-2024 16:11-0400 SaO2% (BldA) [Mass fraction] 99 % Hansa Ibarra APRN.LEAD TELLER Work Phone: [facility] 09-20-2024 16:11-0400 Systolic blood pressure 110 mm[Hg] Hansa Ibarra APRN.LEAD TELLER Work Phone: [facility] 05-31-2024 10:13-0400 Body mass index (BMI) [Ratio] 32.45 kg/m2 Hansa Ibarra APRN.LEAD TELLER Work Phone: [facility] 05-31-2024 10:13-0400 Body temperature 97.11 [degF] Hansa Ibarra APRN.LEAD TELLER Work Phone: [facility] 05-31-2024 10:13-0400 Body weight 94.9 kg Hansa Ibarar APRN.LEAD TELLER Work Phone: [facility] 05-31-2024 10:13-0400 Diastolic blood pressure 76 mm[Hg] Hansa Ibarra APRN.LEAD TELLER Work Phone: [facility] 05-31-2024 10:13-0400 Heart rate 85 /min Hansa Ibarra APRN.LEAD TELLER Work Phone: [facility] 05-31-2024 10:13-0400 Respiratory rate 16 /min Hansa Ibarra APRN.LEAD TELLER Work Phone: [facility] 05-31-2024 10:13-0400 SaO2% (BldA) [Mass fraction] 98 % Hansa Ibarra APRN.LEAD TELLER Work Phone: [facility] 05-31-2024 10:13-0400 Systolic blood pressure 110 mm[Hg] Hansa Ibarra APRN.LEAD TELLER Work Phone: [facility] 05-25-2024 08:55-0400 Body mass index (BMI) [Ratio] 31.26 kg/m2 Jonah Solorzano APRN.LEAD TELLER Work Phone: [facility] 05-25-2024 08:55-0400 Body temperature 97.2 [degF] Jonah Damonbury VEGETABLE CANNER.LEAD TELLER Work Phone: [facility] 05-25-2024 08:55-0400 Body weight 91.4 kg Jonah Solorzano VEGETABLE CANNER.LEAD TELLER Work Phone: [facility] 05-25-2024 08:55-0400 Diastolic blood pressure 91 mm[Hg] Jonah Solorzano VEGETABLE CANNER.LEAD TELLER Work Phone: [facility] 05-25-2024 08:55-0400 Heart rate 96 /min Jonah Solorzano VEGETABLE CANNER.LEAD TELLER Work Phone: [facility] 05-25-2024 08:55-0400 Respiratory rate 18 /min Jonah Solorzano VEGETABLE CANNER.LEAD TELLER Work Phone: [facility] 05-25-2024 08:55-0400 SaO2% (BldA) [Mass fraction] 98 % Jonah Solorzano VEGETABLE CANNER.LEAD TELLER Work Phone: [facility] 05-25-2024 08:55-0400 Systolic blood pressure 140 mm[Hg] [facility] VEGETABLE CANNER.LEAD TELLER Work Phone: [facility] 06-14-2023 21:41-0400 Body temperature 98 [degF] [facility] 06-14-2023 21:41-0400 Diastolic blood pressure 87 mm[Hg] [facility] 06-14-2023 21:41-0400 Heart rate 84 /min [facility] 06-14-2023 21:41-0400 Respiratory rate 16 /min [facility] 06-14-2023 21:41-0400 SaO2% (BldA) [Mass fraction] 99 % [facility] 06-14-2023 21:41-0400 Systolic blood pressure 137 mm[Hg] [facility] 06-14-2023 17:15-0400 Body height 170.18 cm [facility] 06-14-2023 17:15-0400 Body mass index (BMI) [Ratio] 28.1 kg/m2 [facility] 06-14-2023 17:15-0400 Body weight 81.64 kg [facility] 04-23-2023 05:02-0400 Body temperature 97.4 [degF] [facility] 04-23-2023 05:02-0400 Diastolic blood pressure 60 mm[Hg] [facility] 04-23-2023 05:02-0400 Heart rate 85 /min [facility] 04-23-2023 05:02-0400 Respiratory rate 16 /min [facility] 04-23-2023 05:02-0400 SaO2% (BldA) [Mass fraction] 96 % [facility] 04-23-2023 05:02-0400 Systolic blood pressure 132 mm[Hg] [facility] 04-23-2023 03:32-0400 Body height 175.26 cm [facility] 04-23-2023 03:32-0400 Body mass index (BMI) [Ratio] 29.1 kg/m2 [facility] 04-23-2023 03:32-0400 Body weight 89.58 kg [facility] 01-29-2023 15:22-0500 Body height 170.18 cm [facility] 01-29-2023 15:22-0500 Body mass index (BMI) [Ratio] 28.1 kg/m2 [facility] 01-29-2023 15:22-0500 Body temperature 97.6 [degF] [facility] 01-29-2023 15:22-0500 Body weight 81.64 kg [facility] 01-29-2023 15:22-0500 Diastolic blood pressure 86 mm[Hg] [facility] 01-29-2023 15:22-0500 Heart rate 84 /min [facility] 01-29-2023 15:22-0500 Respiratory rate 16 /min [facility] 01-29-2023 15:22-0500 SaO2% (BldA) [Mass fraction] 98 % [facility] 01-29-2023 15:22-0500 Systolic blood pressure 172 mm[Hg] [facility] Encounters Encounter Date Encounter Type Care Provider Facility Start: 09-20-2024 End: 09-20-2024 Patient encounter procedure Hansa Ibarra VEGETABLE CANNER.LEAD TELLER Work Phone: [facility] Comment on above: Acute cough (Primary Dx); Wheezing Start: 07-27-2024 End: 07-27-2024 Patient encounter procedure Brien Silva MA -[facility] Work Phone: Start: 07-27-2024 End: 07-27-[address] 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) Start: 05-31-2024 End: 05-31-2024 ambulatory HANSA IBARRA Facility:[facility] Start: 05-25-2024 End: 05-25-2024 Office outpatient visit 25 minutes Jonah Solorzano APRN.LEAD TELLER Work Phone: [facility] Comment on above: Acute cough (Primary Dx); SOB (shortness of breath) Start: 05-25-2024 End: 05-25-2024 ambulatory JONAH SOLORZANO Facility:[facility] Start: 06-14-2023 End: 06-14-2023 Emergency department patient visit [facility] Work Phone: Start: 04-23-2023 End: 04-23-2023 Emergency department patient visit [facility] Work Phone: Start: 01-29-2023 End: 01-29-2023 Emergency department patient visit [facility] Work Phone: Start: 08-12-2022 ambulatory Red Sauceda MD Work Phone: [facility] [place] Start: 08-13-2017 End: 08-13-2017 Emergency department patient visit [facility] Facility:[facility] Procedures Date Procedure Procedure Detail Performing Clinician Start: 06-14-2023 Plain chest X-ray Plan of Treatment Date Care Activity Detail Author Start: 04-04-2028 Urine microalbumin profile [facility] Start: 10-09-2024 Influenza vaccination Influenza Vacc ine (#1) [facility] Start: 10-10-2023 Covid-19 Vaccine ( season) Covid-19 Vaccine ( season) [facility] Start: 10-10-2023 Influenza vaccination Influenza Vacc ine (#1) [facility] Start: 2023 HPV TESTING HPV TESTING [facility] Start: 2023 PAP TESTING PAP TESTING [facility] Start: 2023 Screening for malign ant neoplasm of cervix Cervical Cancer Screening [facility] Start: 06-14-2023 [facility] Start: 04-23-2023 [facility] Start: 01-29-2023 [facility] Start: 10-09-2022 Influenza vaccination INFLUENZA (#1) [facility] Start: 2022 Mammography MAMMOGRAM [facility] Start: 2022 Screening for malign ant neoplasm of breast Mammogram Screening [facility] Start: 2009 HPV Vaccine (1 - 3-d ose SCDM series) HPV Vaccine (1 - 3-dose SCDM series) [facility] Start: 2001 Hepatitis B Vaccine (1 of 3 - 19+ 3-dose series) Hepatitis B Vaccine (1 of 3 - 19+ 3-dose series) [facility] Start: 2001 Pneumococcal vaccination Pneumococcal Vaccine (1 of 2 - PCV) [facility] Start: 1988 PNEUMOCOCCAL (1 - PCV) PNEUMOCOCCAL (1 - PCV) [facility] Start: 1982 COVID-19 VACCINE (#1) COVID-19 VACCI NE (#1) [facility] Start: 1982 HEPATITIS B (1 of 3 - 3-dose series) HEPATITIS B (1 of 3 - 3-dose series) [facility] End: 09-11-2023 JACKIE SCREENING JACKIE SCREENING Radiology Routine Encounter for screening mammogram for breast cancer 1 Occurrences starting 08/12/2022 until 09/11/2023 [facility] Work Phone: Comment on above: 1 Occurrences starti ng 08/12/2022 until 09/11/2023 Patient Education [facility] Work Phone: Patient referral [facility] Work Phone: Immunizations Immunization Date Immunization Notes Care Provider Moreno anabelfadia 01-13-2019 tuberculin skin test ; purified protein derivative solution, intradermal Jonah Solorzano APRN.LEAD TELLER Work Phone: [facility] 04-04-2018 tetanus toxoid, reduced diphtheria toxoid, and acellular pertussis vaccine, adsorbed Red Sauceda MD Work Phone: [facility] Work Phone: 01-10-2016 influenza virus vaccine, unspecified formulation Jonah Solorzano APRN.LEAD TELLER Work Phone: [facility] 12-15-2010 influenza virus vaccine, unspecified formulation Red Sauceda MD Work Phone: [facility] Payers Date Payer Category Payer Self-pay [id number] 2022 Medicaid [employer] [id number] 2022-Present [phone] [address] [address] Medicaid [id number] 2017 Unknown 2015 Unknown [employer] [id number] Unknown ANTHEM [id number] Unknown SELF INS [facility] [id number] Unknown [id number] Unknown [id number] Social History Date Type Detail Facility Start: 09-15-2017 End: 05-25-2024 Tobacco smoking status NHIS Smokes tobacco daily [facility] History of tobacco use Cigarette Smoker [facility] Start: 09-15-2017 End: 01-14-2020 Cigarettes smoked current (pack per day) - Reported 0.5 [facility] Start: 09-15-2017 End: 05-25-2024 Tobacco use and exposure Smokeless tobacco non-user [facility] Start: 01-10-2020 End: 09-20-2024 Alcohol intake Current drinker of alcohol (finding) [facility] Start: 07-08-2010 Alcohol Comment Occasional,NOT WHILE [facility] Start: 1980 Sex Assigned At Not on file [facility] Start: 01-14-2020 End: 05-25-2024 Gender identity Not on file [facility] Start: 01-29-2023 End: 06-14-2023 Tobacco smoking status AKIS Unknown if ever smoked [facility] Start: 05-09-2018 None [facility] Start: 1980 Sex Assigned At Female [facility] Start: 01-10-2012 National Score (1-10 0), lower number is lower risk Not on file [facility] Clinical Notes 09-27-2017 to 09-20-2024 Hansa Ibarra, LYNETTE.[facility] - 09/20/2024 4:24 PM Hansa Jarvis, LYNETTE.[facility] - 05/31/2024 10:34 AM Jonah Taylor APRN.[facility] - 05/25/2024 9:12 AM EDT Note Date & Type Note Facility 09-20-2024 History of Present illness Narrative [facility] Singh Obrien is a 44 year old female. Patient presents with: Cough: Cough and Shortness of Breath x several days HPI Cough and Dyspnea: - Acute onset cough and dyspnea began this morning. - Dyspnea described as gasping for breath while sitting; associated with lightheadedness. - Denies chest pain. - History of similar episode last year, treated in the ER with a shot, breathing treatment, and inhaler prescription. - Uncertain about COPD diagnosis; hospital mentioned it but was not confirmed. - History of pneumonia in childhood. - Denies pleuritic pain. - Declined viral testing. - Denies history of COVID-19 infection. Review of Systems Cardiovascular: (-) chest pain Respiratory: (+) cough, (+) shortness of breath Neurological: (+) lightheadedness Objective BP 110/78 Pulse 100 Temp 36.6 C (97.8 F) (Tympanic) Resp 20 Wt 93.5 kg (206 lb 2.1 oz) LMP 08/07/2017 SpO2 99% BMI 31.98 kg/m Physical Exam General: No acute distress. Resp: Diffuse wheezing. { 1. Acute cough (R05.1) 2. Wheezing (R06.2) - Acute onset of cough and wheezing with associated dyspnea and lightheadedness; no chest pain reported. - History of similar episode last year requiring ER visit, treated with injection, breathing treatment, and inhaler. - Wheezing noted throughout lung alvarez on exam; oxygen saturation within normal limits. - Discussed chest X-ray to rule out pneumonia; patient declined. - Start 9-day steroid taper. - Advised to return for re-evaluation if no improvement with steroids. and Recording using [employer] software for draft documentation of the visit was discussed with the patient/authorized customer care representative; all questions welcomed and answered. Patient/authorized customer care representative agreed to proceed MDM Procedures documented in this encounter [facility] 05-31-2024 Note HNO ID: [id number] Author: HANSA IBARRA APRN.IRON Service: ? Author Type: Nurse Practitioner Type: Progress Notes Filed: 05/31/2024 10:41 Note Text: [facility] Subjective Cammy Obrien is a 43 year old female. Patient presents with: Eye Problem: Bilateral red and irritated eyes x 1 day Patient came in with complaints of sinus congestion bilateral eye irritation and matting. Patient denies any eye pain or vision changes. Patient does have seasonal allergies and is not taking medicine at this time. Denies any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
[2024-09-21 20:58] VITALS: BP 130/87; PULSE 100; RESP 18; TEMP 36.8; O2SAT 100; O2SAT 99
== END 2024-09-21 20:59 | disposition home or self-care (01) ==
PROVIDERS: Emergency Provider Emergency Medicine; PCP Family Medicine; Visit Provider Emergency Medicine
DX: J44.1 Chronic obstructive pulmonary disease with (acute) exacerbation (principal); Z79.52 Long term (current) use of systemic steroids; F17.210 Nicotine dependence, cigarettes, uncomplicated
CPT/HCPCS: 71046; 93005; 94640; 96374; 99283; A4216

== ENCOUNTER 2025-01-30 15:19 | Emergency (ER) | payer SELFPAY ==
[2025-01-30 15:20] VITALS: BP 142/131; PULSE 99; RESP 22; TEMP 36.8; O2SAT 96; BMI 31.4
--- NOTE | 2025-01-30 15:35 | EX.ED.DYSGE1 ---
HPI History of Present Illness Chief Complaint: Cold Sx Detail of Chief Complaint: Cough and shortness of breath Informant: patient Narrative Narrative: Patient presents to the emergency department complaint cough and shortness of breath that started 4 days ago. Patient states her son was ill for 1 day last week but he is better now. Patient is a smoker and has history of COPD. Denies fever. She has had some bodyaches. Cough at times productive of some yellow phlegm but most of the time it is dry. She denies recent travel or surgery. Patient believes she has some sort of lung disease whether to be asthma or COPD but has no formal diagnosis. She continues to smoke cigarettes. [facility] Medical History (Updated 01/30/25 @ 15:[address] Gigi Langston, DO) COPD (chronic obstructive pulmonary disease) Home Medications ?Medication ?Instructions ?Recorded ?Last Taken ?Type albuterol sulfate 90 mcg/actuation 2 puff inhalation Q4H PRN PRN 06/14/23 Unknown Rx aerosol inhaler (Ventolin HFA) Wheezing #8.5 grams prednisone 50 mg tablet 50 mg PO DAILY 5 days #5 tabs 06/14/23 Unknown Rx albuterol sulfate 90 mcg/actuation 2 inh inhalation Q4H PRN shortness 09/21/24 Unknown Rx breath activated powder inhaler of breath or wheezing 30 days #1 ea azithromycin 250 mg tablet See Rx Instructions PO .COMPLEX #6 09/21/24 Unknown Rx (Zithromax Z-Randal) tabs prednisone 50 mg tablet 50 mg PO DAILY 5 days #5 tabs 09/21/24 Unknown Rx albuterol sulfate 90 mcg/actuation 2 inh inhalation Q6H PRN shortness 01/30/25 Unknown Rx breath activated powder inhaler of breath #1 ea prednisone 20 mg tablet 20 mg PO BID #10 tabs 01/30/25 Unknown Rx Allergy/AdvReac Type Severity Reaction Status Date / Time oxycodone HCl (From Percocet) Allergy Angioedema Verified 01/30/25 15:21 acetaminophen (From Vicodin) AdvReac Vomiting Verified 01/30/25 15:21 hydrocodone (From Vicodin) AdvReac Vomiting Verified 01/30/25 15:21 Social History (Updated 09/21/24 @ 20:06 by Mónica Alba) housing: house Smoking Status: Current every day smoker tobacco type: cigarettes ROS ROS ED Review of Systems ROS Unobtainable: other Constitutional Constitutional ED: Reports lethargy; Denies chills, fever(s), sweats or weight loss Eyes Eyes: Denies blurry vision, change in vision or diplopia ENT ENT ED: Denies rhinorrhea or sore throat Cardiovascular Cardiovascular: Denies chest pain, orthopnea or racing heartbeat Respiratory/Chest Respiratory/Chest: Reports cough and dyspnea; Denies dyspnea on exertion, orthopnea or sputum Gastrointestinal Gastrointestinal: Denies abdominal pain, diarrhea, nausea or vomiting Genitourinary Genitourinary ED: Denies dysuria, hematuria or urinary frequency Musculoskeletal Musculoskeletal: Reports myalgias; Denies arthralgias, back pain or neck pain Integumentary Denies abscess, Abrasions or rash Neurologic Neurologic: Denies headache(s) or weakness Psychiatric Psychiatric: Denies anxiety, depression or suicidal thoughts Endocrine Endocrinology: Denies polydipsia, polyphagia or polyuria Hematologic/Lymphatic Hematologic/Lymphatic: Denies easy bleeding, easy bruising or lymphadenopathy Allergic/Immunologic Allergic/Immunologic ED: Denies mouth swelling, tongue swelling or urticaria EXAM Physical Exam Const Vital Signs: 01/30/25 15:20 01/30/25 16:24 Temperature 98.3 F Temperature Source Oral Pulse Rate 99 83 Respiratory Rate 22 H 16 Blood Pressure 142/131 H Blood Pressure Mean 134 Pulse Ox 96 Oxygen Delivery Method Room Air Positive well nourished and well developed General Appearance ED: well developed and NAD HEENT Reports TM's clear and moist mucous membranes normocephalic and atraumatic; Negative for trauma or tenderness Tympanic Membrane ED: Yes TM's clear Eyes PERRL and EOMs intact bilaterally General Eye ED: Negative for pale conjunctiva or scleral icterus Neck no lymphadenopathy, supple and no JVD General: Negative for tenderness Chest Wall inspection of chest normal and palpation of chest normal Chest: Negative for tenderness Resp normal respiratory effort and No clear to auscultation bilaterally Resp Narrative: Good aeration bilaterally. Patient has expiratory wheezes bilaterally with some mild tachypnea. No accessory muscle use or retractions. Effort and Inspection: Negative for respiratory distress or pain with movement Auscultation: wheezes; Negative for rhonchi or diminished lung sounds Cardio regular rate, regular rhythm, S1 normal heart sound, S2 normal heart sound and no murmurs Peripheral Pulses: pulses 2+ throughout GI normal to inspection, nondistended, normoactive bowel sounds, soft to palpation, non-tender, non-distended and no masses Back/Spine no CVA tenderness and no thoracic nor lumbar tenderness Extremity normal to inspection General Extremety ED: Negative for edema General Extremity: Negative for edema Neuro oriented x3, CN's II-XII intact bilaterally, no sensory deficits noted and gait normal Sensorium / Orientation: awake, alert, oriented to person, oriented to place and oriented to time Motor Exam: strength 5/5 throughout and strength abnormal Psych mental status grossly normal Skin no rashes or lesions noted and no wounds MDM MDM MDM Narrative Medical decision making narrative: Patient presents with upper respiratory symptoms for at least 4 days. He has wheezing on exam. Suspect likely a viral asthmatic bronchitis but will obtain a chest x-ray and will give her breathing treatments and prednisone. She does not want to have a viral testing done. She states that she does not have much time and wants to get home to her 6-year-old daughter. Radiography Diagnostic Testing: Clinical Impression(s) from Imaging Studies Chest X-Ray 01/30/25 15:45 IMPRESSION: No Acute Findings. Reading Location: [facility] 1 view chest x-ray obtained interpreted by myself as no evidence of infiltrate or pneumothorax or acute disease process Discharge Plan Triage Chief Complaint: Cold Sx ED Provider: Gigi Langston Dx/Rx/DC Orders Clinical Impression: Acute asthmatic bronchitis, Viral URI Instructions: ED Bronchitis with Wheezing (Adult), ED URI, Viral, No Abx (Adult) Prescriptions: New prednisone 20 mg tablet 20 mg PO BID Qty: 10 0RF albuterol sulfate 90 mcg/actuation aerosol powdr breath activated 2 inh inhalation Q6H PRN (Reason: shortness of breath) Qty: 1 0RF Rx Instructions: 2 puffs every 4 hours as needed wheezing No Action albuterol sulfate 90 mcg/actuation aerosol powdr breath activated 2 inh inhalation Q4H PRN (Reason: shortness of breath or wheezing) 30 Days Qty: 1 0RF prednisone 50 mg tablet 50 mg PO DAILY 5 Days Qty: 5 0RF azithromycin [Zithromax Z-Randal] 250 mg tablet See Rx Instructions .ROUTE .COMPLEX Qty: 6 0RF Rx Instructions: For 250 mg dose pack: take 500 mg today (day 1), then 250 mg for 4 days (days 2-5) albuterol sulfate [Ventolin HFA] 90 mcg/actuation HFA aerosol inhaler 2 puff inhalation Q4H PRN PRN (Reason: Wheezing) Qty: 8.5 3RF prednisone 50 mg tablet 50 mg PO DAILY 5 Days Qty: 5 0RF Primary Care Provider: Red Sauceda Referrals: Red Sauceda MD [Primary Care Provider, Medical] - 3-5 Days Print Language: Kosovan Disposition Disposition: Home, Self Care
--- NOTE | 2025-01-30 15:45 | RAD_ITS ---
PROCEDURE: CHEST 1 VIEW (PORTABLE) 01/30/2025 REASON FOR EXAM: COUGH TECHNIQUE: Frontal view of the chest. COMPARISON: 09/21/2024. FINDINGS: The heart is normal in size. The lungs are clear. No acute osseous abnormalities. RAD/Chest 1 View (Portable) IMPRESSION: No Acute Findings. Reading [facility] [place]
[2025-01-30] MEDS: Albuterol Sulfate 8 gm Inhaler (60 puffs) 2 PUFF INHALATION (16:22)
[2025-01-30 16:24] VITALS: PULSE 83; RESP 16
[2025-01-30 17:28] VITALS: BP 134/88; PULSE 83; RESP 16; TEMP 36.7; O2SAT 97
--- NOTE | 2025-01-30 17:30 | ED.RN ---
pt room empty and left before dc'd or papers given
--- OUTSIDE RECORDS SUMMARY | 2025-01-30 17:40 | XMS RPT_ITS | CCD ---
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 creatinine m easurement (mass/volume)Ordered By: Sarwat Rossi on 06-14-2023 Creatinine [Mass/Vol] 0.88 mg/dL 0.55-1.02 [facility] Comment on above: The validity of the calculated GFR & GFRAA in patients over 70 years has not been determined. Clinical correlation is essential. 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 Performed By: #### 2 [id number] ####AUBREE [address]Gvtx[address] [place] [address] Basophils/100 WBC Auto (Bld) 0.4 % Normal 0.0-2.0 [facility] Comment on above: Order Comment: Order Added by Jeff Expert. Performed By: #### 2 [id number] ####AUBREEKelver GarciasHwgWawd4066 [place] [address] Eos Absolute 0.0 E3/mcL Normal 0.0-0.7 [facility] Comment on above: Order Comment: Order Added by Jeff Expert. Performed By: #### 2 [id number] ####AUBREEKlever GarciasPgtYldw1792 [place] [address] Eosinophils/100 leukocytes 0.3 % Normal 0.0-11.0 [facility] Comment on above: Order Comment: Order Added by Jeff Expert. Performed By: #### 2 [id number] ####AUBREEKlever GarciasSrlUywj1967 [place] [address] Lymphocytes 2.0 E3/mcL Normal 1.2-3.4 [facility] Comment on above: Order Comment: Order Added by Discern Expert. Performed By: #### 2 [id number] ####AUBREEKlever GarciasFgiNxqh3162 [place] [address] Lymphocytes/100 leukocytes 22.8 % Normal 20.0-55.0 [facility] Comment on above: Order Comment: Order Added by Discern Expert. Performed By: #### 2 [id number] ####AUBREEKlever GarciasYfePirb6446 [place] [address] Sanborn Absolute 0.6 E3/mcL Normal 0.0-0.7 [facility] Comment on above: Order Comment: Order Added by Discern Expert. Performed By: #### 2 [id number] ####AUBREE [address] [place] [address] Monocytes/100 leukocytes 7.3 % Normal 0.0-10.0 [facility] Comment on above: Order Comment: Order Added by Discern Expert. Performed By: #### 2 [id number] ####AUBREE [address] [place] [address] Neutro Absolute 6.0 E3/mcL Normal 1.4-6.5 [facility] Comment on above: Order Comment: Order Added by Discern Expert. Performed By: #### 2 [id number] ####AUBREE [address] [place] [address] Neutro Auto 69.2 % Normal 37.0-75.0 [facility] Comment on above: Order Comment: Order Added by Discern Expert. Performed By: #### 2 [id number] ####AUBREE [address] [place] [address] BMPon 08-13-2017 BUN/Creatinine Ratio 18.8 ratio Normal 5.4-30.0 [facility] Comment on above: Performed By: #### 2 [id number] ####AUBREE GarciasSmrDtwf[address] [place] [address] Creatinine 0.8 mg/dL Normal 0.6-1.3 [facility] Comment on above: Performed By: #### 2 [id number] ####AUBREE GarciasAdyLwts[address]44 [place] [address] Urea nitrogen 15 mg/dL Normal 7-18 [facility] Comment on above: Performed By: #### 2 [id number] ####AUBREE GarciasZmyZutd[address] [place] [address] Calcium 9.3 mg/dL Normal 8.4-10.2 [facility] Comment on above: Performed By: #### 2 781604 ####AUBREE GarciasArwOzvd[address] [place] [address] Chloride 102 mmol/L Normal 98-107 [facility] Comment on above: Performed By: #### 2 102658 ####AUBREE GarciasYktVlpb5584 [place] [address] CO2 27.7 mmol/L Normal 24.0-30.0 [facility] Comment on above: Performed By: #### 2 [id number] ####AUBREE FarEajd[address] [place] [address] Glucose mass conc 80 mg/dL Normal 70-99 [facility] Comment on above: Performed By: #### 2 072171 ####AUBREE VtnFdgr[address] [place] [address] Potassium molar conc 4.0 mmol/L Normal 3.5-5.1 [facility] Comment on above: Performed By: #### 2 [id number] ####AUBREE SfsDkaa[address] [place] [address] Sodium 137 mmol/L Normal 136-145 [facility] Comment on above: Performed By: #### 2 607093 ####AUBREE GarciasPqaVooz[address] [place] [address] BhCG Qualon 08-13-2017 HCG.beta subunit Qn Negative Normal Negative [facility] Comment on above: Performed By: #### 2 [id number] ####AUBREE Chemistry Manual [address] [place] [address] CBC w/ Auto Diffon 8 Erythrocyte distribution width Auto Ratio (RBC) 13.2 % Normal 11.5-14.5 [facility] Comment on above: Performed By: #### 2 717211 ####AUBREE VuhOuwl[address] [place] [address] Erythrocytes (RBC) 4.20 E6/mcL Normal 3.90-5.40 [facility] Comment on above: Performed By: #### 2 361388 ####AUBREE MflRjus[address] [place] [address] Hematocrit (HCT) 40.8 % Normal 36.0-48.0 [facility] Comment on above: Performed By: #### 2 778010 ####AUBREE VmzIwbc0761 [place] [address] Hemoglobin mass conc (Bld) 13.9 g/dL Normal 12.0-16.0 [facility] Comment on above: Performed By: #### 2 685722 ####AUBREE [address] [place] [address] MCH 33.1 pg High 27.0-31.0 [facility] Comment on above: Performed By: #### 2 015168 ####AUBREE [address] [place] [address] MCHC mass conc (RBC) 34.1 g/dL Normal 33.0-37.0 [facility] Comment on above: Performed By: #### 2 272551 ####AUBREE [address] [place] [address] MCV 97.0 fL Normal 78.0-100.0 [facility] Comment on above: Performed By: #### 2 832495 ####AUBREE [address] [place] [address] Platelet mean volume (PMV) 8.9 fL Normal 7.4-11.0 [facility] Comment on above: Performed By: #### 2 [id number] ####AUBREE [address] [place] [address] Platelets 216 E3/mcL Normal 130-400 [facility] Comment on above: Performed By: #### 2 569009 ####AUBREE [address] [place] [address] WBC (Leukocytes) 8.7 E3/mcL Normal 3.6-11.0 [facility] Comment on above: Performed By: #### 2 [id number] ####AUBREE [address] [place] [address] Hep Func Panelon 08-13-2017 Alanine aminotransferase (ALT) 16 Int._Unit/L Normal 10-40 [facility] Comment on above: Performed By: #### 2 050637 ####AUBREE DuiUqsf[address] [place] [address] Albumin 4.0 g/dL Normal 3.2-5.0 [facility] Comment on above: Performed By: #### 2 [id number] ####AUBREE OlyKfgd0409 [place] [address] Albumin/Globulin Ratio 1.3 {ratio} Normal 1.1-1.9 [facility] Comment on above: Performed By: #### 2 007739 ####AUBREE GarciasKleZuvi[address]153 [place] [address] Alk Phos 61 Int._Unit/L Normal 42-121 [facility] Comment on above: Performed By: #### 2 160043 ####AUBREE [address] [place] [address] Aspartate aminotransferase (AST) 19 Int._Unit/L Normal 10-42 [facility] Comment on above: Performed By: #### 2 482430 ####AUBREE [address] [place] [address] Bili Direct <.10 Normal .00-.20 [facility] Comment on above: Performed By: #### 2 403057 ####AUBREE [address] [place] [address] Bili Indirect >0.4 Normal [facility] Comment on above: Result Comment: No e stablished ranges available for the Indirect Biliruben. Performed By: #### 2 176382 ####AUBREE [address] [place] [address] Bili Total 0.5 mg/dL Normal 0.2-1.0 [facility] Comment on above: Performed By: #### 2 054810 ####AUBREE [address] [place] [address] Globulin 3.1 g/dL Normal 2.0-4.0 [facility] Comment on above: Performed By: #### 2 637512 ####AUBREE GarciasDtyQozt[address]25 [place] [address] Protein 7.1 g/dL Normal 6.4-8.3 [facility] Comment on above: Performed By: #### 2 690006 ####AUBREE GarciasEslNccg[address]48 [place] [address] Lipase Levelon 08-13-2017 Lipase Lvl 24 U/L Normal 8-57 [facility] Comment on above: Performed By: #### 2 805318 ####AUBREE GarciasHkcWhtt5278 [place] [address] eGFRon 08-13-2017 eGFR (non-black) mL/min/{1.73_m2} Normal [facility] Comment on above: Order Comment: Order added by Discern Expert. Performed By: #### 1 [id number] ####AUBREE QbdKjmv[address]97 [place] [address] Vital Signs Date Time Vital Sign Value Performing Clinician Facility 09-21-2024 20:58-0400 Body temperature 98.3 [degF] Dr. Red Sauceda MD Work Phone: 7(817)[phone] [place] [address] 09-21-2024 20:58-0400 Diastolic blood pressure 87 mm[Hg] Dr. Red Sauceda MD Work Phone: 6(612)[phone] [place] [address] 09-21-2024 20:58-0400 Heart rate 100 /min Dr. Red Sauceda MD Work Phone: 1(069)556-172684 [place] [address] 09-21-2024 20:58-0400 Respiratory rate 18 /min Dr. Red Sauceda MD Work Phone: 0(688)[phone] [place] [address] 09-21-2024 20:58-0400 SaO2% (BldA) [Mass fraction] 99 % Dr. Red Sauceda MD Work Phone: 8(642)[phone] [place] [address] 09-21-2024 20:58-0400 Systolic blood pressure 130 mm[Hg] Dr. Rde Sauceda MD Work Phone: 9(910)[phone] [place] [address] 09-21-2024 19:35-0400 Body height 170.[address] Red Sauceda MD Work Phone: 3(247)[phone] [place] [address] 09-21-2024 19:35-0400 Body mass index (BMI) [Ratio] 32.2 kg/m2 Dr. Red Sauceda MD Work Phone: 6(391)[phone] [place] [address] 09-21-2024 19:35-0400 Body weight 93.[address] Red Sauceda MD Work Phone: 6(951)707-302584 [place] [address] 09-20-2024 16:11-0400 Body mass index (BMI) [Ratio] 31.98 kg/m2 Hansa Ibarra APRN.ACTIVITIES DIRECTOR SCOUTING Work Phone: [facility] 09-20-2024 16:11-0400 Body temperature 97.81 [degF] Hansa Ibarra APRN.ACTIVITIES DIRECTOR SCOUTING Work Phone: [facility] 09-20-2024 16:11-0400 Body weight 93.5 kg Hansa Ibarra APRN.ACTIVITIES DIRECTOR SCOUTING Work Phone: [facility] 09-20-2024 16:11-0400 Diastolic blood pressure 78 mm[Hg] Hansa Ibarra APRN.ACTIVITIES DIRECTOR SCOUTING Work Phone: [facility] 09-20-2024 16:11-0400 Heart rate 100 /min Hansa Ibarra APRN.ACTIVITIES DIRECTOR SCOUTING Work Phone: [facility] 09-20-2024 16:11-0400 Respiratory rate 20 /min Hansa Ibarra APRN.ACTIVITIES DIRECTOR SCOUTING Work Phone: [facility] 09-20-2024 16:11-0400 SaO2% (BldA) [Mass fraction] 99 % Hansa Ibarra APRN.ACTIVITIES DIRECTOR SCOUTING Work Phone: [facility] 09-20-2024 16:11-0400 Systolic blood pressure 110 mm[Hg] Hansa Ibarra APRN.ACTIVITIES DIRECTOR SCOUTING Work Phone: [facility] 05-31-2024 10:13-0400 Body mass index (BMI) [Ratio] 32.45 kg/m2 Hansa Ibarra APRN.ACTIVITIES DIRECTOR SCOUTING Work Phone: [facility] 05-31-2024 10:13-0400 Body temperature 97.11 [degF] Hansa Ibarra APRN.ACTIVITIES DIRECTOR SCOUTING Work Phone: [facility] 05-31-2024 10:13-0400 Body weight 94.9 kg Hansa Ibrara APRN.ACTIVITIES DIRECTOR SCOUTING Work Phone: [facility] 05-31-2024 10:13-0400 Diastolic blood pressure 76 mm[Hg] Hansa Ibarra APRN.ACTIVITIES DIRECTOR SCOUTING Work Phone: [facility] 05-31-2024 10:13-0400 Heart rate 85 /min Hansa Ibarra APRN.ACTIVITIES DIRECTOR SCOUTING Work Phone: [facility] 05-31-2024 10:13-0400 Respiratory rate 16 /min Hansa Ibarra APRN.ACTIVITIES DIRECTOR SCOUTING Work Phone: [facility] 05-31-2024 10:13-0400 SaO2% (BldA) [Mass fraction] 98 % Hansa Ibarra APRN.ACTIVITIES DIRECTOR SCOUTING Work Phone: [facility] 05-31-2024 10:13-0400 Systolic blood pressure 110 mm[Hg] Hansa Ibarra RN EMERGENCY ROOM.ACTIVITIES DIRECTOR SCOUTING Work Phone: [facility] 05-25-2024 08:55-0400 Body mass index (BMI) [Ratio] 31.26 kg/m2 Jonah Solorzano RN EMERGENCY ROOM.ACTIVITIES DIRECTOR SCOUTING Work Phone: [facility] 05-25-2024 08:55-0400 Body temperature 97.2 [degF] Jonah Solorzano RN EMERGENCY ROOM.ACTIVITIES DIRECTOR SCOUTING Work Phone: [facility] 05-25-2024 08:55-0400 Body weight 91.4 kg Jonah Solorzano APRN.ACTIVITIES DIRECTOR SCOUTING Work Phone: [facility] 05-25-2024 08:55-0400 Diastolic blood pressure 91 mm[Hg] Jonah Solorzano RN EMERGENCY ROOM.ACTIVITIES DIRECTOR SCOUTING Work Phone: [facility] 05-25-2024 08:55-0400 Heart rate 96 /min Jonah Solorzano RN EMERGENCY ROOM.ACTIVITIES DIRECTOR SCOUTING Work Phone: [facility] 05-25-2024 08:55-0400 Respiratory rate 18 /min Jonah Solorzano RN EMERGENCY ROOM.ACTIVITIES DIRECTOR SCOUTING Work Phone: [facility] 05-25-2024 08:55-0400 SaO2% (BldA) [Mass fraction] 98 % Jonah Solorazno RN EMERGENCY ROOM.ACTIVITIES DIRECTOR SCOUTING Work Phone: [facility] 05-25-2024 08:55-0400 Systolic blood pressure 140 mm[Hg] Jonah Solorzano RN EMERGENCY ROOM.ACTIVITIES DIRECTOR SCOUTING Work Phone: [facility] 06-14-2023 21:41-0400 Body temperature 98 [degF] [facility] 06-14-2023 21:41-0400 Diastolic blood pressure 87 mm[Hg] [facility] 06-14-2023 21:41-0400 Heart rate 84 /min [facility] 06-14-2023 21:41-0400 Respiratory rate 16 /min [facility] 06-14-2023 21:41-0400 SaO2% (BldA) [Mass fraction] 99 % [facility] 06-14-2023 21:41-0400 Systolic blood pressure 137 mm[Hg] [facility] 06-14-2023 17:15-0400 Body height 170.18 cm [facility] 06-14-2023 17:15-0400 Body mass index (BMI) [Ratio] 28.1 kg/m2 [facility] 06-14-2023 17:15-0400 Body weight 81.64 kg [facility] 04-23-2023 05:02-0400 Body temperature 97.4 [degF] [facility] 04-23-2023 05:02-0400 Diastolic blood pressure 60 mm[Hg] [facility] 04-23-2023 05:02-0400 Heart rate 85 /min [facility] 04-23-2023 05:02-0400 Respiratory rate 16 /min [facility] 04-23-2023 05:02-0400 SaO2% (BldA) [Mass fraction] 96 % [facility] 04-23-2023 05:02-0400 Systolic blood pressure 132 mm[Hg] [facility] 04-23-2023 03:32-0400 Body height 175.26 cm [facility] 04-23-2023 03:32-0400 Body mass index (BMI) [Ratio] 29.1 kg/m2 [facility] 04-23-2023 03:32-0400 Body weight 89.58 kg [facility] 01-29-2023 15:22-0500 Body height 170.18 cm [facility] 01-29-2023 15:22-0500 Body mass index (BMI) [Ratio] 28.1 kg/m2 [facility] 01-29-2023 15:22-0500 Body temperature 97.6 [degF] [facility] 01-29-2023 15:22-0500 Body weight 81.64 kg [facility] 01-29-2023 15:22-0500 Diastolic blood pressure 86 mm[Hg] [facility] 01-29-2023 15:22-0500 Heart rate 84 /min [facility] 01-29-2023 15:22-0500 Respiratory rate 16 /min [facility] 01-29-2023 15:22-0500 SaO2% (BldA) [Mass fraction] 98 % [facility] 01-29-2023 15:22-0500 Systolic blood pressure 172 mm[Hg] [facility] Encounters Encounter Date Encounter Type Care Provider Facility Start: 09-21-2024 End: 09-21-2024 Emergency department patient visit Dr. Rde Sauceda MD Work Phone: -Emergency Department Work Phone: Start: 09-20-2024 End: 09-20-2024 Patient encounter procedure Hansa Ibarra APRN.ACTIVITIES DIRECTOR SCOUTING Work Phone: [facility] Comment on above: Acute cough (Primary Dx); Wheezing Start: 09-20-2024 End: 09-20-2024 ambulatory HANSA IBARRA Facility:[facility] Start: 07-27-2024 End: 07-27-2024 Patient encounter procedure Brien Silva [place] -[facility] Work Phone: Start: 07-27-2024 End: 07-27-[address] Red Sauceda MD Work Phone: [facility] Work Phone: Start: 05-31-2024 End: 05-31-2024 Patient encounter procedure Hansa Ibarra APRN.ACTIVITIES DIRECTOR SCOUTING Work Phone: [facility] Comment on above: [place] eye disease of both eyes (Primary Dx) Start: 05-31-2024 End: 05-31-2024 ambulatory HANSA IBARRA Facility:[facility] Start: 05-25-2024 End: 05-25-2024 Office outpatient visit 25 minutes Jonah Solorzano APRN.ACTIVITIES DIRECTOR SCOUTING Work Phone: [facility] Comment on above: Acute cough (Primary Dx); SOB (shortness of breath) Start: 05-25-2024 End: 05-25-2024 ambulatory JONAH SOLORZANO Facility:[facility] Start: 06-14-2023 End: 06-14-2023 Emergency department patient visit [facility]Emergency Department Work Phone: Start: 04-23-2023 End: 04-23-2023 Emergency department patient visit [facility] Work Phone: Start: 01-29-2023 End: 01-29-2023 Emergency department patient visit [facility]Emergency [facility] Work Phone: Start: 08-12-2022 ambulatory Red Sauceda MD Work Phone: Internal [facility] Start: 08-13-2017 End: 08-13-2017 Emergency department patient visit [facility] Facility:[facility] Procedures Date Procedure Procedure Detail Performing Clinician Start: 09-21-2024 X-ray of chest, PA a nd lateral views Dr. Red Sauceda MD Work Phone: Start: 06-14-2023 Plain chest X-ray Plan of Treatment Date Care Activity Detail Author Start: 04-04-2028 Urine microalbumin profile [facility] Start: 10-09-2024 Influenza vaccination Influenza Vacc ine (#1) [facility] Start: 09-21-2024 [facility] Start: 10-10-2023 Covid-19 Vaccine ( season) Covid-19 Vaccine ( season) [facility] Start: 10-10-2023 Influenza vaccination Influenza Vacc ine (#1) [facility] Start: 2023 HPV TESTING HPV TESTING [facility] Start: 2023 PAP TESTING PAP TESTING [facility] Start: 2023 Screening for malign ant neoplasm of cervix Cervical Cancer Screening [facility] Start: 06-14-2023 [facility] Start: 04-23-2023 [facility] Start: 01-29-2023 [facility] Start: 10-09-2022 Influenza vaccination INFLUENZA (#1) [facility] Start: 2022 Mammography MAMMOGRAM [facility] Start: 2022 Screening for malign ant neoplasm of breast Mammogram Screening [facility] Start: 2009 HPV Vaccine (1 - 3-d ose SCDM series) HPV Vaccine (1 - 3-dose SCDM series) [facility] Start: 2001 Hepatitis B Vaccine (1 of 3 - 19+ 3-dose series) Hepatitis B Vaccine (1 of 3 - 19+ 3-dose series) [facility] Start: 2001 Pneumococcal vaccination Pneumococcal Vaccine (1 of 2 - PCV) [facility] Start: 1988 PNEUMOCOCCAL (1 - PCV) PNEUMOCOCCAL (1 - PCV) [facility] Start: 1982 COVID-19 VACCINE (#1) COVID-19 VACCI NE (#1) [facility] Start: 1982 HEPATITIS B (1 of 3 - 3-dose series) HEPATITIS B (1 of 3 - 3-dose series) [facility] End: 09-11-2023 JACKIE SCREENING JACKIE SCREENING Radiology Routine Encounter for screening mammogram for breast cancer 1 Occurrences starting 08/12/2022 until 09/11/2023 [facility] Work Phone: Comment on above: 1 Occurrences starti ng 08/12/2022 until 09/11/2023 Patient Education [facility] Work Phone: Patient referral [facility] Work Phone: Immunizations Immunization Date Immunization Notes Care Provider Moreno dutton 01-13-2019 tuberculin skin test ; purified protein derivative solution, intradermal Jonah Solorzano APRN.ACTIVITIES DIRECTOR SCOUTING Work Phone: [facility] 04-04-2018 tetanus toxoid, reduced diphtheria toxoid, and acellular pertussis vaccine, adsorbed Red Sauceda MD Work Phone: [facility] Work Phone: 01-10-2016 influenza virus vaccine, unspecified formulation Jonah Solorzano APRN.ACTIVITIES DIRECTOR SCOUTING Work Phone: [facility] 12-15-2010 influenza virus vaccine, unspecified formulation Red Sauceda MD Work Phone: [facility] Payers Date Payer Category Payer Self-pay [id number] 2022 Medicaid [facility] MEDICAID [id number] 2022-Present [phone] [address] [place] [address] Medicaid [id number] 2017 Unknown 2015 Unknown [id number] Unknown [id number] Unknown [id number] Unknown [id number] Social History Date Type Detail Facility Start: 09-15-2017 End: 09-21-2024 Tobacco smoking status OHIS Smokes tobacco daily [facility] History of tobacco use Cigarette Smoker [facility] Start: 09-15-2017 End: 01-14-2020 Cigarettes smoked current (pack per day) - Reported 0.5 [facility] Start: 09-15-2017 End: 05-25-2024 Tobacco use and exposure Smokeless tobacco non-user [facility] Start: 01-10-2020 End: 09-20-2024 Alcohol intake Current drinker of alcohol (finding) [facility] Start: 07-08-2010 Alcohol Comment Occasional,NOT WHILE [facility] Start: 1982 Sex Assigned At Not on file [facility] Start: 01-14-2020 End: 05-25-2024 Gender identity Not on file [facility] Start: 01-29-2023 End: 06-14-2023 Tobacco smoking status NHIS Unknown if ever smoked [facility] Start: 05-09-2018 None [facility] Start: 1980 Sex Assigned At Female [facility] Start: 01-10-2012 National Score (1-10 0), lower number is lower risk Not on file [facility] Clinical Notes 09-27-2017 to 09-21-2024 Hansa Ibarra APRN.ACTIVITIES DIRECTOR SCOUTING - 09/20/2024 4:24 PM EDT Note Date & Type Note Facility 09-21-2024 Radiology Diagnostic study note [facility] [address] [place] [address] Chest PA and Lateral MR#: [id number] Acct: [id number] Name: CAMMY OBRIEN Rep #: [id number] : 1980 F 44 From: Ash Mustafa MD PCP: Dr. Red Sauceda MD Status: REG E R Study:Chest PA and Lateral Date of Exam: 09/21/24 Exam# [id number] Ordering Dr: Elizabeth Remy PROCEDURE: CHEST PA AND LATERAL 09/21/2024 REASON FOR EXAM: COUGH AND DYSPNEA TECHNIQUE: CHEST PA AND LATERAL COMPARISON: 06/14/2023. FINDINGS: The heart is normal in size. The lungs are clear. No acute osseous abnormalities. RAD/Chest PA and Lateral IMPRESSION: NO ACUTE FINDINGS. Reading Location: [id number] CC: Dr. Red Sauceda MD; SHAHRZAD Taylor ~ Pension Adviser: Signed [facility] 09-20-2024 Note HNO ID: [id number] Author: HANSA IBARRA APRN.ACTIVITIES DIRECTOR SCOUTING Service: ? Author Type: Nurse Practitioner Type: Progress Notes Filed: 09/20/2024 16:25 Note Text: [facility] Singh Obrien is a 44 year old [...] Objective BP 110/78 Pulse 100 Temp 36.6 ?C (97.8 ?F) (Tympanic) Resp 20 Wt 93.5 kg (206 lb 2.1 oz) LMP 08/07/2017 SpO2 99% BMI 31.98 kg/m? Physical Exam General: No acute distress. Resp: [...] no improvement with steroids. and Recording using [employer] software for draft documentation of the visit was discussed with the patient/authorized tax representative; all questions welcomed and answered. Patient/authorized tax representative agreed to proceed MDM Procedures [facility] 09-20-2024 History of Present illness Narrative [facility] Amelle Obrien is a 44 year old female. [...] no improvement with steroids. and Recording using [employer] software for draft documentation of the visit was discussed with the patient/authorized tax representative; all questions welcomed and answered. Patient/authorized tax representative agreed to proceed MDM Procedures documented in this encounter [facility] 07-27-2024 Evaluation note Diagnosis Onset Date Resolution Encounter for pre-employment health screening examination acute July 27, 2024 2:57pm [facility] Work Phone: [phone]) 715-724304-23-2025 NoteHNO ID: [id number] Author: HANSA IBARRA APRN.ACTIVITIES DIRECTOR SCOUTING Service: ? Author Type: Nurse Practitioner Type: Progress Notes Filed: 05/31/2024 10:41 Note Text: [facility] Subjective Cammy Obrien is a [...] history is provided by the patient. No manager language was used. Eye Problem Review of Systems [...] Occasional,NOT WHILE Drug use: No {ASSESSMENT/PLAN: 1. [place] eye disease of both eyes - ICD9: [...] prior records. Disposition The patient was discharged. [facility] History of Present illness Narrative* Hansa Ibarra APRN.IRON - 05/31/2024 10:34 AM EDT [facility] Subjective Cammy Obrien is [...] history is provided by the patient. No manager language was used. Eye Problem Review of Systems Constitutional: Negative. HENT: Negative. Objective BP 110/76 Pulse 85 Temp 36.2 C (97.1 F) (Tympanic) Resp 16 Wt 94.9 kg (209 lb 3.5 oz) LMP08/07/2017 SpO2 98% BMI 32.45 kg/m Physical Exam [...] Occasional,NOT WHILE Drug use: No {ASSESSMENT/PLAN: 1. [place] eye disease of both eyes - ICD9: 372.03, ICD10: H10.023 - POLYMYXIN B SULFATE 10,000 UNIT-TRIMETHOPRIM 1 MG/ML EYE DROPS Educated about proper use of medication and supportive therapies. Will follow-up if signs and symptoms seem to be getting worse not better. Patient agreeable to care plan. Hansa Ibarra APRN.CNP History and Record Review External record(s) reviewed: no prior records. Disposition The patient was discharged. [facility]25 NoteHNO ID: [id number] Author: JONAH SOLORZANO APRN.CNP Service: ? Author Type: Nurse Practitioner Type: [...] of acute asthma/COPD exacer (more content not included)...[facility]04-17-2025 History of Present illness Narrative* Jonah Solorzano APRN.ACTIVITIES DIRECTOR SCOUTING - 05/25/2024 9:12 AM EDT Subjective HPI Nontoxic-appearing female presents urgent care [...] of care. This note was generated using [employer] software. It may contain errors in wording, punctuation, or spelling. Jonah Solorzano APRN.IRON [facility] History of Past illness Narrative* Problem Noted Date Diagnosed Date Resolved Date [...] of this encounter (statuses as of 08/17/2022) [facility] note* Diagnosis Encounter for screening mammogram for breast cancer documented in this encounter [facility] noteNo assessment information [facility]WFairfield [facility] Work Phone: Evaluation note* Diagnosis Acute cough- Primary SOB (shortness of breath) Shortness of breath documented in this encounter [facility] note* Diagnosis [place] eye disease of both eyes- Primary documented in this encounter [facility] note* Diagnosis Acute cough- Primary Wheezing [facility] Additional Instructions Gentamicin ophthalmic drops: 2 drops to affected eye every 6 hours until symptoms resolved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
== END 2025-01-30 17:00 | disposition home or self-care (01) ==
PROVIDERS: Emergency Provider Emergency Medicine; PCP Family Medicine; Visit Provider Emergency Medicine
DX: J06.9 Acute upper respiratory infection, unspecified (principal); J45.909 Unspecified asthma, uncomplicated; F17.210 Nicotine dependence, cigarettes, uncomplicated
CPT/HCPCS: 71045; 94640; 94664; 99283